=== PATIENT | male | born 1950 | race Caucasian/White ===

== ENCOUNTER 2017-01-08 23:48 | Inpatient (IN) ==
[2017-01-08] MEDS ORDERED: 0.9 % Sodium Chloride 1,000 ML IVC ONE ×2 (23:57→23:58)
[2017-01-09] MEDS ORDERED: Hydrocortisone Sodium Succ 100 MG/2 ML VIAL IVP ONE
[2017-01-09] MEDS ORDERED: Ipratropium/Albuterol Neb 3 ML IH ONE
[2017-01-09 00:12] LABS: Basophils # 0.1 K/mcL (0.0-0.2); Basophils % 0.8 %; Eosinophils # 0.4 K/mcL (0.0-0.6); Eosinophils % 5.8 %; Hematocrit 38.7 % (37.5-50.1); Hemoglobin 12.6 g/dL (12.9-16.9); Immature Granulocytes % 0.1 % (0-4); Lymphocytes # 2.9 K/mcL (0.6-4.6); Lymphocytes % 39.4 %; Mean Corpuscular HGB Conc 32.6 g/dL (31.6-35.5); Mean Corpuscular Hemoglobin 31.3 pg (28.0-33.3); Mean Corpuscular Volume 96.3 fL (83.0-100.0); Monocytes # 0.9 K/mcL (0.0-1.3); Monocytes % 11.4 %; Neutrophils # 3.2 K/mcL (1.6-8.9); Platelet Count 171 K/mcL (140-400); Red Blood Count 4.02 M/mcL (4.19-5.50); Red Cell Distribution Width 14.6 % (11.5-14.5); Segmented Neutrophils % 42.5 %
[2017-01-09 00:21] LABS: INR 1.1; Prothrombin Time 11.3 Seconds (9.4-12.1)
[2017-01-09 00:23] LABS: Activated Partial Thrombo Time 28.2 Seconds (26.0-36.0)
[2017-01-09 00:33] LABS: Albumin 3.2 g/dL (3.5-5.0); Albumin/Globulin Ratio 0.9 (1.1-2.2); Bilirubin,Direct 0.2 mg/dL (0.0-0.5); Bilirubin,Indirect 0.2 mg/dL (0.0-1.2); Bilirubin,Total 0.4 mg/dL (0.2-1.2); Calcium 9.2 mg/dL (8.6-10.8); Globulin 3.7 g/dL (2.4-3.5); Potassium 4.2 mEq/L (3.5-4.5); Total Protein 6.9 g/dL (6.0-8.3)
--- NOTE | 2017-01-09 00:36 | Emergency Department Note ---
Disposition Clinical Impression: Altered mental status Qualifiers: Altered mental status type: unspecified Qualified Code(s): R41.82 - Altered mental status, unspecified Hypotension Qualifiers: Hypotension type: unspecified hypotension type Qualified Code(s): I95.9 - Hypotension, unspecified Pneumonia Qualifiers: Pneumonia type: due to unspecified organism Laterality: unspecified laterality Lung location: unspecified part of lung Qualified Code(s): J18.9 - Pneumonia, unspecified organism Disposition: Admitted As Inpatient Condition: Fair General Adult HPI - General Chief complaint: ED Altered Mental Status Stated complaint: AMS Time Seen by Provider: 01/08/17 23:55 Source: patient, EMS Limitations: no limitations Nursing Notes Reviewed: Yes Vital Signs Reviewed: Yes - History of Present Illness HPI Narrative: 66-year-old male who according to family this was much more confused than normal. They report that he has a history of hypertension, hypothyroidism, diabetes. The family states that he was normal until about 10 PM this evening. They say that he fell asleep in his chair and was not easily aroused. They do state that he does drink alcohol but they do not know how much she had a drink today. They deny hearing that he has had a cough or any other symptoms. The patient says that nothing is wrong with him but he falls asleep in between questioning and mumbles. Pain Scale: 0 Consistency: constant Improves with: nothing Worsens with: nothing Treatments Prior to Arrival: none - Related Data Home Medications Medication Instructions Recorded Confirmed ALPRAZolam [Xanax 1 MG Tablet] 1 mg PO PRN PRN 01/09/17 01/09/17 Albuterol Sulfate [Proventil Hfa] 6.7 gm IH 2-4XD PRN 01/09/17 01/09/17 Atorvastatin Calcium [Lipitor] 20 mg PO DAILY 01/09/17 01/09/17 Levothyroxine [Synthroid] 0.025 mg PO DAILY 01/09/17 01/09/17 Lisinopril [Zestril] 15 mg PO DAILY 01/09/17 01/09/17 Metoprolol Tartrate 75 mg PO ISIDORO 01/09/17 01/09/17 Oxybutynin Chloride [Ditropan Xl] 15 mg PO DAILY 01/09/17 01/09/17 Quetiapine Fumarate [Seroquel] 400 mg PO HS 01/09/17 01/09/17 Ranitidine HCl [Zantac] 150 mg PO 1-2XD 01/09/17 01/09/17 Terbutaline Sulfate 5 mg PO DAILY 01/09/17 01/09/17 metFORMIN [Glucophage] 500 mg PO DAILY 01/09/17 01/09/17 Allergies Allergy/AdvReac Type Severity Reaction Status Date / Time Penicillins [PCN] Allergy Unknown Anaphylaxis Verified 01/08/17 23:54 All systems ED: reviewed and negative except as stated. Constitutional: Denies: fever Cardiovascular: Denies: chest pain Respiratory: Denies: cough Gastrointestinal: Denies: abdominal pain Integumentary: Denies: rash Neurological: Denies: headache Past Medical History - Past Medical History Medical history: Reports: arthritis, hyperlipidemia, hypertension, other Psychiatric history: Reports: PTSD - Social History Smoking Status: Current every day smoker Smokeless Tobacco Status: No Alcohol use: Reports: heavy Drug use: Reports: unknown Physical Exam - General Limitations: no limitations General appearance: alert, in no apparent distress - Head Head exam: atraumatic - Eye Eye exam: Present: normal appearance - ENT ENT exam: normal exam, normal oropharynx - Neck Neck exam: Present: normal inspection - Chest Chest inspection: Present: normal inspection - Respiratory Respiratory exam: Present: wheezes, other (Moderate expiratory wheezes bilaterally) - Cardiovascular Cardiovascular exam: Present: regular rate, normal rhythm - Abdominal Exam Abdominal exam: Present: soft, Non-Tender, other (Vertical incision scar is present which is well-healed) - Extremities Exam Extremities exam: Present: normal inspection - Neurological Exam Neurological exam: Present: other (Confused without motor sensory deficit. Tired.) - Skin Skin exam: Present: warm, dry Course Course Narrative: It is unclear at this point the etiology of his acute confusion. We will do a CT scan and a septic workup. On arrival he was hypotensive so we will go ahead and given 2 L normal saline. He is not tachycardic and is not febrile and there is no obvious source of infection on physical exam. However we will do blood cultures and treat this as sepsis until we find otherwise. I will also do a trial of hydrocortisone due to his hypotension without tachycardia. Levaquin given due to CXR possibly showing pneumonia. Will admit due to AMS. Accepted by Dr Argueta Vital Signs O2 Sat by Pulse Oximetry 94 01/08/17 23:52 Temperature 97.9 F 01/08/17 23:55 Pulse Rate 62 01/09/17 03:31 Respiratory Rate 18 01/09/17 03:59 Blood Pressure 115/71 01/09/17 03:59 O2 Sat by Pulse Oximetry 98 01/09/17 03:31 Oxygen Delivery Oxygen Delivery Nasal Cannula Medical Decision Making - Medical Records Medical records reviewed: Yes I reviewed the patient's medical records. - Lab Data Lab results reviewed: Yes I reviewed the patient's lab results. Result diagrams: 01/09/17 00:00 01/09/17 00:00 Lab Results 01/08/17 01/09/17 01/09/17 Range/Units 23:55 00:00 00:00 WBC 7.4 (4.3-11.1) K/mcL RBC 4.02 L (4.19-5.50) M/mcL Hgb 12.6 L (12.9-16.9) g/dL Hct 38.7 (37.5-50.1) % MCV 96.3 (83.0-100.0) fL MCH 31.3 (28.0-33.3) pg MCHC 32.6 (31.6-35.5) g/dL RDW 14.6 H (11.5-14.5) % Plt Count 171 (140-400) K/mcL MPV 10.0 (9.4-12.4) fL Immature Gran % 0.1 (0-4) % Seg Neutrophils % 42.5 % Lymphocytes % 39.4 % Monocytes % 11.4 % Eosinophils % 5.8 % Basophils % 0.8 % Neutrophils # 3.2 (1.6-8.9) K/mcL Lymphocytes # 2.9 (0.6-4.6) K/mcL Monocytes # 0.9 (0.0-1.3) K/mcL Eosinophils # 0.4 (0.0-0.6) K/mcL Basophils # 0.1 (0.0-0.2) K/mcL PT 11.3 (9.4-12.1) Seconds INR 1.1 APTT 28.2 (26.0-36.0) Seconds Sodium (136-145) mEq/L Potassium (3.5-4.5) mEq/L Chloride (98-109) mEq/L Carbon Dioxide (19-29) mEq/L BUN (8-26) mg/dL Creatinine (0.72-1.25) mg/dL Est GFR ( Amer) (> 60) Est GFR (Non-Af Amer) (> 60) BUN/Creatinine Ratio (6-26) Glucose (70-99) mg/dL POC Glucose 109 H (58-89) Calculated Osmolality (280-300) Calcium (8.6-10.8) mg/dL Total Bilirubin (0.2-1.2) mg/dL Direct Bilirubin (0.0-0.5) mg/dL Indirect Bilirubin (0.0-1.2) mg/dL AST (5-34) Units/L ALT (0-55) Units/L Alkaline Phosphatase (38-126) Units/L Ammonia (18-72) mcmol/L Troponin I (0-0.03) ng/mL Serum Total Protein (6.0-8.3) g/dL Albumin (3.5-5.0) g/dL Globulin (2.4-3.5) g/dL Albumin/Globulin Ratio (1.1-2.2) TSH (0.350-4.840) mcIU/mL Urine Color (Yellow) Urine Clarity (Clear) Urine pH (5.0-8.0) pH Units Ur Specific Fowler (1.010-1.025) Urine Protein (Neg-Trace) mg/dL Urine Glucose (UA) (Normal) mg/dL Urine Ketones (Negative) mg/dL Urine Blood (Negative) Urine Nitrite (Negative) Urine Bilirubin (Negative) Urine Urobilinogen (Normal) mg/dL Ur Leukocyte Esterase (Negative) Urine Microscopic RBC (0-3) per hpf Urine Microscopic WBC (0-3) per hpf Ur Squamous Epith Cells (None-Few) per lpf Urine Bacteria (None-Few) per hpf Hyaline Casts (None-Few) per lpf Ur Culture Indicated? (NO) Urine Opiates Screen (Ktfgtk=897) ng/mL Ur Barbiturates Screen (Jefkpb=572) ng/mL Ur Phencyclidine Scrn (Cutoff=25) ng/mL Ur Amphetamines Screen (Bedzln=0947) ng/mL U Benzodiazepines Scrn (Zeaiop=343) ng/mL Urine Cocaine Screen (Cutoff= 300) ng/mL U Marijuana (THC) Screen (Cutoff = 50) ng/mL Ethyl Alcohol (0-10) mg/dL 01/09/17 01/09/17 01/09/17 Range/Units 00:00 00:00 00:00 WBC (4.3-11.1) K/mcL RBC (4.19-5.50) M/mcL Hgb (12.9-16.9) g/dL Hct (37.5-50.1) % MCV (83.0-100.0) fL MCH (28.0-33.3) pg MCHC (31.6-35.5) g/dL RDW (11.5-14.5) % Plt Count (140-400) K/mcL MPV (9.4-12.4) fL Immature Gran % (0-4) % Seg Neutrophils % % Lymphocytes % % Monocytes % % Eosinophils % % Basophils % % Neutrophils # (1.6-8.9) K/mcL Lymphocytes # (0.6-4.6) K/mcL Monocytes # (0.0-1.3) K/mcL Eosinophils # (0.0-0.6) K/mcL Basophils # (0.0-0.2) K/mcL PT (9.4-12.1) Seconds INR APTT (26.0-36.0) Seconds Sodium 138 (136-145) mEq/L Potassium 4.2 (3.5-4.5) mEq/L Chloride 104 (98-109) mEq/L Carbon Dioxide 24 (19-29) mEq/L BUN 15 (8-26) mg/dL Creatinine 1.48 H (0.72-1.25) mg/dL Est GFR ( Amer) 58 L (> 60) Est GFR (Non-Af Amer) 48 L (> 60) BUN/Creatinine Ratio 10 (6-26) Glucose 111 H (70-99) mg/dL POC Glucose (58-89) Calculated Osmolality 288 (280-300) Calcium 9.2 (8.6-10.8) mg/dL Total Bilirubin 0.4 (0.2-1.2) mg/dL Direct Bilirubin 0.2 (0.0-0.5) mg/dL Indirect Bilirubin 0.2 (0.0-1.2) mg/dL AST 19 (5-34) Units/L ALT 25 (0-55) Units/L Alkaline Phosphatase 139 H (38-126) Units/L Ammonia 22 (18-72) mcmol/L Troponin I 0.02 (0-0.03) ng/mL Serum Total Protein 6.9 (6.0-8.3) g/dL Albumin 3.2 L (3.5-5.0) g/dL Globulin 3.7 H (2.4-3.5) g/dL Albumin/Globulin Ratio 0.9 L (1.1-2.2) TSH 8.978 H (0.350-4.840) mcIU/mL Urine Color (Yellow) Urine Clarity (Clear) Urine pH (5.0-8.0) pH Units Ur Specific Fowler (1.010-1.025) Urine Protein (Neg-Trace) mg/dL Urine Glucose (UA) (Normal) mg/dL Urine Ketones (Negative) mg/dL Urine Blood (Negative) Urine Nitrite (Negative) Urine Bilirubin (Negative) Urine Urobilinogen (Normal) mg/dL Ur Leukocyte Esterase (Negative) Urine Microscopic RBC (0-3) per hpf Urine Microscopic WBC (0-3) per hpf Ur Squamous Epith Cells (None-Few) per lpf Urine Bacteria (None-Few) per hpf Hyaline Casts (None-Few) per lpf Ur Culture Indicated? (NO) Urine Opiates Screen (Yovrnw=820) ng/mL Ur Barbiturates Screen (Kmkoqr=507) ng/mL Ur Phencyclidine Scrn (Cutoff=25) ng/mL Ur Amphetamines Screen (Fhkxia=1417) ng/mL U Benzodiazepines Scrn (Uqmetx=425) ng/mL Urine Cocaine Screen (Cutoff= 300) ng/mL U Marijuana (THC) Screen (Cutoff = 50) ng/mL Ethyl Alcohol 22 H (0-10) mg/dL 01/09/17 01/09/17 Range/Units 00:53 00:53 WBC (4.3-11.1) K/mcL RBC (4.19-5.50) M/mcL Hgb (12.9-16.9) g/dL Hct (37.5-50.1) % MCV (83.0-100.0) fL MCH (28.0-33.3) pg MCHC (31.6-35.5) g/dL RDW (11.5-14.5) % Plt Count (140-400) K/mcL MPV (9.4-12.4) fL Immature Gran % (0-4) % Seg Neutrophils % % Lymphocytes % % Monocytes % % Eosinophils % % Basophils % % Neutrophils # (1.6-8.9) K/mcL Lymphocytes # (0.6-4.6) K/mcL Monocytes # (0.0-1.3) K/mcL Eosinophils # (0.0-0.6) K/mcL Basophils # (0.0-0.2) K/mcL PT (9.4-12.1) Seconds INR APTT (26.0-36.0) Seconds Sodium (136-145) mEq/L Potassium (3.5-4.5) mEq/L Chloride (98-109) mEq/L Carbon Dioxide (19-29) mEq/L BUN (8-26) mg/dL Creatinine (0.72-1.25) mg/dL Est GFR ( Amer) (> 60) Est GFR (Non-Af Amer) (> 60) BUN/Creatinine Ratio (6-26) Glucose (70-99) mg/dL POC Glucose (58-89) Calculated Osmolality (280-300) Calcium (8.6-10.8) mg/dL Total Bilirubin (0.2-1.2) mg/dL Direct Bilirubin (0.0-0.5) mg/dL Indirect Bilirubin (0.0-1.2) mg/dL AST (5-34) Units/L ALT (0-55) Units/L Alkaline Phosphatase (38-126) Units/L Ammonia (18-72) mcmol/L Troponin I (0-0.03) ng/mL Serum Total Protein (6.0-8.3) g/dL Albumin (3.5-5.0) g/dL Globulin (2.4-3.5) g/dL Albumin/Globulin Ratio (1.1-2.2) TSH (0.350-4.840) mcIU/mL Urine Color Yellow (Yellow) Urine Clarity Cloudy A (Clear) Urine pH 6.0 (5.0-8.0) pH Units Ur Specific Fowler 1.010 (1.010-1.025) Urine Protein Negative (Neg-Trace) mg/dL Urine Glucose (UA) Normal (Normal) mg/dL Urine Ketones Negative (Negative) mg/dL Urine Blood Negative (Negative) Urine Nitrite Negative (Negative) Urine Bilirubin Negative (Negative) Urine Urobilinogen Normal (Normal) mg/dL Ur Leukocyte Esterase Negative (Negative) Urine Microscopic RBC 0-3 (0-3) per hpf Urine Microscopic WBC 0-3 (0-3) per hpf Ur Squamous Epith Cells Many H (None-Few) per lpf Urine Bacteria None Seen (None-Few) per hpf Hyaline Casts None Seen (None-Few) per lpf Ur Culture Indicated? NO (NO) Urine Opiates Screen Negative (Mkmrlh=531) ng/mL Ur Barbiturates Screen Negative (Jfzydv=244) ng/mL Ur Phencyclidine Scrn Negative (Cutoff=25) ng/mL Ur Amphetamines Screen Negative (Hojshf=7726) ng/mL U Benzodiazepines Scrn Positive H (Lqjfrm=758) ng/mL Urine Cocaine Screen Negative (Cutoff= 300) ng/mL U Marijuana (THC) Screen Negative (Cutoff = 50) ng/mL Ethyl Alcohol (0-10) mg/dL - Radiology Data Radiology results reviewed: Yes I reviewed the patient's radiology results. Attestation Statement - Attestation Attestation: I, Ryland Finley MD, personally evaluated this patient and discussed their management with the resident physician. I reviewed the resident's note and agree with the documented findings, medical decision making, and plan of care. 66-year-old male presents to the emergency department with a complaint of increased confusion which started earlier this evening. Family reports that he was just slumped over in chair. He does respond but is more drowsy than normal. Speech is garbled and difficult to understand. He has not been ill recently. He has a history of a similar episode in the past and was found out in the manzo. He had rhabdomyolysis at that time elevated liver enzymes and kidney function. On examination patient is a well-developed well-nourished elderly male in no acute distress. He is somnolent but responds to verbal stimuli. There is no cyanosis or diaphoresis. Neck is supple with no meningismus. Mucous membranes are moist. Chest is nontender to palpation. Breath sounds are decreased but equal bilaterally. Heart regular rate and rhythm. Abdomen is soft and nontender with normal bowel sounds. Labs reviewed. No acute changes on EKG. Chest x-ray shows left basilar airspace disease could represent recurrent atelectasis/pneumonia or scarring. Head CT negative. The hospitalist, Dr. Argueta, was consulted and accepted admission of the patient.
[2017-01-09 01:03] LABS: Bilirubin,Urine Negative (Negative); Blood,Urine Negative (Negative); Clarity,Urine Cloudy (Clear); Color,Urine Yellow (Yellow); Glucose,Urine (UA) Normal (Normal); Ketones,Urine Negative (Negative); Leukocyte Esterase,Urine Negative (Negative); Nitrite,Urine Negative (Negative); Protein,Urine Negative (Neg-Trace); Urobilinogen,Urine Normal (Normal)
[2017-01-09 01:06] LABS: Bacteria,Urine None Seen per hpf (None-Few); Hyaline Casts,Urine None Seen per lpf (None-Few); RBC,Urine 0-3 per hpf (0-3); Squamous Epithelial Cell,Urine Many per lpf (None-Few); WBC,Urine 0-3 per hpf (0-3)
[2017-01-09 01:14] LABS: Thyroid Stimulating Hormone 8.978 mcIU/mL (0.350-4.840)
[2017-01-09 02:03] LABS: Amphetamine Screen,Urine Negative ng/mL (Cutoff=1000); Barbiturate Screen,Urine Negative ng/mL (Cutoff=200); Benzodiazepines Screen,Urine Positive ng/mL (Cutoff=200); Cannabinoid Screen,Urine Negative ng/mL (Cutoff = 50); Cocaine Screen,Urine Negative ng/mL (Cutoff= 300); Opiate Screen,Urine Negative ng/mL (Cutoff=300); Phencyclidine Screen,Urine Negative ng/mL (Cutoff=25)
[2017-01-09] MEDS ORDERED: Levofloxacin 750 MG/150 ML 750 MG/150 ML BAG IVPB ONE (02:24)
[2017-01-09] MEDS ORDERED: Acetaminophen 325 MG TABLET PO PRN (04:57)
[2017-01-09] MEDS ORDERED: Naloxone 0.4 MG/ML INJ IVP PRN (04:57)
[2017-01-09] MEDS ORDERED: Ondansetron 4 MG/2 ML VIAL IVP PRN (04:57)
[2017-01-09] MEDS ORDERED: *HR* Morphine 2 MG/ML SYRINGE IVP PRN (04:57)
[2017-01-09] MEDS ORDERED: ALPRAZolam 1 MG TABLET PO PRN (05:00)
[2017-01-09] MEDS ORDERED: *HR* Dextrose 50 % in Water (Syg) 50 ML SYRINGE IVP PRN (05:03)
[2017-01-09] MEDS ORDERED: D5% in Water 1,000 ML IVC PRN (05:03)
[2017-01-09] MEDS ORDERED: Dextrose Gel 15 GM PO PRN ×2 (05:03)
--- NOTE | 2017-01-09 05:05 | Internal Med History&Physical ---
Date of Encounter: 01/09/17 Time of Encounter: 04:45 Assessment and Plan (1) Altered mental status Current visit: No Status: Acute Acute Encephalopathy, metabolic - possibly due to Benzodiazepine use, possibly due to alcohol abuse - with mild ASHLEY Probable moderate Dementia Continue IV fluids, NPO, supportive care, O2 via nasal cannula UA - negative CT head - no acute intracranial abnormality Chest x-ray - left basilar airspace disease UDS - positive for benzodiazepines Alcohol level - 22 Cardiac telemetry, continuous pulse ox, continue to monitor closely Qualifiers: Altered mental status type: unspecified Qualified Code(s): R41.82 - Altered mental status, unspecified (2) Pneumonia Current visit: Yes Status: Acute Community-acquired pneumonia, left lower lobe - present on admission, likely secondary to strep pneumoniae Continue empiric IV Levaquin, DuoNeb breathing treatment, O2 via nasal cannula Cultures - pending Chest x-ray - left basilar airspace disease WBC - 7.4 Cardiac telemetry, continuous pulse ox, repeat labs in a.m., continue to monitor closely Qualifiers: Pneumonia type: due to unspecified organism Laterality: unspecified laterality Lung location: unspecified part of lung Qualified Code(s): J18.9 - Pneumonia, unspecified organism (3) Essential hypertension Current visit: Yes Status: Chronic Essential Hypertension, controlled, monitor Hold Metoprolol and Lisinopril due to hypotension (4) Hyperlipidemia Current visit: No Status: Chronic Continue Zocor Qualifiers: Hyperlipidemia type: unspecified Qualified Code(s): E78.5 - Hyperlipidemia , unspecified (5) COPD (chronic obstructive pulmonary disease) Current visit: Yes Status: Chronic Probable COPD, not in exacerbation Qualifiers: Emphysema type: unspecified Qualified Code(s): J43.9 - Emphysema, unspecified (6) Diabetes mellitus Current visit: Yes Status: Chronic Diabetes mellitus type 2, [id number], hyperglycemia Continue glucose checks, sliding scale Qualifiers: Diabetes mellitus type: type 2 Diabetes mellitus complication status: without complication Diabetes mellitus fci insulin use: without fci use Qualified Code(s): E11.9 - Type 2 diabetes mellitus without complications (7) Alcohol abuse Current visit: No Status: Chronic Counseled about cessation, watch for withdrawal CIWA protocol, IV thiamine, multivitamin tablet (8) Tobacco abuse Current visit: Yes Status: Chronic Counseled about cessation, nicotine patch (9) DVT prophylaxis Current visit: Yes Status: Acute Continue heparin subcutaneous Internal Medicine - H&P: HPI Chief complaint: Altered mental status Admitted From: Emergency Dept Plans for Post Hospital Care: Home History of present illness: Mr. Macdonald is a 66 year old male with past medical history of diabetes, hypertension, hyperlipidemia, arthritis, history of alcohol abuse and PTSD. Patient presents to the ED with complaints of altered mental status. Examined in the room. Patient is awake and alert. He is able to follow verbal commands. He is able to verbalize well. He does not provide good history. Son is at bedside and provides most of the history. Patient's son states that patient became more confused and had altered mental status earlier in the day. Patient usually lives by himself, but his nephew has been living with him for the past 1 week. Patient is apparently independent for activities of daily living. Patient did not complain of chest pain or shortness of breath or vomiting or fever or diarrhea or abdominal pain. No dizziness or any other problems. Son states that patient does have dementia and has been more confused recently. Patient does have history of alcohol abuse. No other acute complaints at this time. Initial workup in the ED is significant for mild acute kidney injury, left basilar airspace disease and urine drug screen positive for benzodiazepines. Patient is being admitted for altered mental status probably due to benzodiazepine use and pneumonia. CODE STATUS full code. Son is the power of trust and estates attorney. Past Med Surg Social Fam HX - Past Medical History Medical history: arthritis, COPD, hyperlipidemia, hypertension, TIA, other Psychiatric history: PTSD - Past Surgical History Surgical History: appendectomy, colectomy - Social History Smoking Status: Current every day smoker Packs per day: 1 Smokeless Tobacco Status: No Alcohol use: heavy Drug use: none - Family History Father Living Status: Hx Family Cardiac Disorders: Yes Hx Family Respiratory Disorders: Yes Hx Family Cancer: No Hx Family GI Disorders: No Hx Family Endocrine Disorder: No Hx Family Neuromuscular Disorders: No Hx Family Neurologic Disorders: No Hx Family HEENT Disorders: No Hx Family Autoimmune Disorders: No Internal Medicine - H&P: Meds ALPRAZolam [Xanax 1 MG Tablet] 1 mg PO PRN PRN 01/09/17 [History] Albuterol Sulfate [Proventil Hfa] 6.7 gm IH 2-4XD PRN 01/09/17 [History] Atorvastatin Calcium [Lipitor] 20 mg PO DAILY 01/09/17 [History] Levothyroxine [Synthroid] 0.025 mg PO DAILY 01/09/17 [History] Lisinopril [Zestril] 15 mg PO DAILY 01/09/17 [History] Metoprolol Tartrate 75 mg PO ISIDORO 01/09/17 [History] Oxybutynin Chloride [Ditropan Xl] 15 mg PO DAILY 01/09/17 [History] Quetiapine Fumarate [Seroquel] 400 mg PO HS 01/09/17 [History] Ranitidine HCl [Zantac] 150 mg PO 1-2XD 01/09/17 [History] Terbutaline Sulfate 5 mg PO DAILY 01/09/17 [History] metFORMIN [Glucophage] 500 mg PO DAILY 01/09/17 [History] 3 Allergy/AdvReac Type Severity Reaction Status Date / Time Penicillins [PCN] Allergy Unknown Anaphylaxis Verified 01/08/17 23:54 All Systems PM: A 10-system review of systems was performed and is negative for pertinent findings except as documented above in the HPI. - Constitutional Constitutional: no fatigue, no fever(s) - EENT Eyes: no blurry vision - Cardiovascular Cardiovascular ROS IM: no chest pain, no diaphoresis, no dyspnea, no dyspnea on exertion, no edema, no lightheadedness, no orthopnea, no syncope - Respiratory Respiratory: no cough, no dyspnea, no hemoptysis, no dyspnea on exertion, no wheezing, no chest congestion - Gastrointestinal Gastrointestinal: no abdominal pain, no cramping, no diarrhea, no hematemesis, no hematochezia, no nausea, no vomiting - Genitourinary Genitourinary ROS male: no dysuria - Neurological Neurological ROS: confusion, memory loss, no abnormal gait, no dizziness, no focal weakness, no loss of vision, no numbness, no tingling - Constitutional Vitals: Temp Pulse Resp BP Pulse Ox 97.5 F L 65 16 100/66 97 01/09/17 04:29 01/09/17 04:29 01/09/17 04:29 01/09/17 04:29 01/09/17 04:29 General appearance: Present: cooperative, A&O X 2, no acute distress, obese, answers questions appropriately - Head Head exam: Present: atraumatic - Eye Eye exam: Present: EOMI - ENT ENT exam: Present: mucous membranes dry - Respiratory Respiratory exam: Present: CTAB. Absent: rales, rhonchi, wheezes, tachypnea - Cardiovascular Cardiovascular exam: Present: RRR, +S1, +S2 - GI/Abdominal GI/Abdominal exam: Present: soft (Obese). Absent: distended, firm, guarding, tenderness - Extremities Exam Extremities exam: Present: radial pulses palpable and symmetrical. Absent: calf tenderness, cyanotic, pedal edema - Neurological Exam Neurological exam: Present: alert, no focal deficits. Absent: pronater drift, facial droop, speech deficit Additional comments: Able to verbalize call follows commands, oriented to place and person but not to time Internal Med - H&P Results - Labs CBC & Chem 7: 01/09/17 00:00 01/09/17 00:00 - Impressions ITS Impressions Chest X-Ray 01/09/17 23:57 IMPRESSION: Left basilar airspace disease could represent recurrent atelectasis/pneumonia or scarring. D/ / Wilebrt Dill MD / Wilbert Dill MD Interpreting Provider: Wilbert Dill MD Head CT 01/09/17 23:59 IMPRESSION: No acute intracranial abnormality. D/ / Wilbert Dill MD / Wilbert Dill MD Interpreting Provider: Wilbert Dill MD
[2017-01-09] MEDS: 0.9 % Sodium Chloride 1,000 ML IVC SCH ×2 (05:28→23:44)
[2017-01-09] MEDS: Famotidine 20 MG/2 ML VIAL IVP SCH ×2 (05:31→17:27)
[2017-01-09 07:29] LABS: Basophils % 0.4 %; Eosinophils % 0.3 %; Hematocrit 38.7 % (37.5-50.1); Hemoglobin 12.6 g/dL (12.9-16.9); Immature Granulocytes % 0.3 % (0-4); Lymphocytes # 0.9 K/mcL (0.6-4.6); Lymphocytes % 13.5 %; Mean Corpuscular HGB Conc 32.6 g/dL (31.6-35.5); Mean Corpuscular Hemoglobin 31.7 pg (28.0-33.3); Mean Corpuscular Volume 97.5 fL (83.0-100.0); Mean Platelet Volume 10.5 fL (9.4-12.4); Monocytes # 0.2 K/mcL (0.0-1.3); Neutrophils # 5.5 K/mcL (1.6-8.9); Platelet Count 165 K/mcL (140-400); Red Blood Count 3.97 M/mcL (4.19-5.50); Red Cell Distribution Width 14.7 % (11.5-14.5); Segmented Neutrophils % 82.5 %
[2017-01-09 07:41] LABS: BUN/Creatinine Ratio 15 (6-26); Blood Urea Nitrogen 15 mg/dL (8-26); Calcium 8.7 mg/dL (8.6-10.8); Carbon Dioxide 24 mEq/L (19-29); Chloride 106 mEq/L (98-109); Chol/HDL Ratio 3.4 (0-4.9); Cholesterol 147 mg/dL (< 200); Glucose 134 mg/dL (70-99); HDL Cholesterol 43 mg/dL (40-59); LDL Cholesterol,Calculated 94 mg/dL (0-99); Magnesium 2.1 mg/dL (1.6-2.6); Osmolality,Calculated 287 (280-300); Sodium 137 mEq/L (136-145); Triglycerides 51 mg/dL (< 150); eGFR For African Americans > 60 (> 60); eGFR For Non-African Americans > 60 (> 60)
[2017-01-09] MEDS: Ipratropium/Albuterol Neb 3 ML IH SCH ×4 (08:01→20:26)
[2017-01-09 08:24] LABS: ABG Base Excess -0.4 mEq/L (-2.0 to 3.0); ABG HCO3 26 mEq/L (21-27); ABG Oxygen Saturation 96 % (95-98); ABG PCO2 48 mmHg (35-45); ABG PH 7.34 pH Units (7.32-7.45); ABG PO2 86 mmHg (85-104); ABG TCO2 27.4 mEq/L (20-26)
[2017-01-09 08:25] LABS: Blood Gas FiO2 38 %
[2017-01-09] MEDS: Thiamine (B-1) 100 MG in D5% in Water 50 ML IVPB SCH (08:52)
[2017-01-09] MEDS: Multivit/Ca/Min/Fe/FA 1 TAB TABLET PO SCH (08:52)
[2017-01-09] MEDS: Aspirin 81 MG TAB.CHEW PO SCH (08:53)
[2017-01-09] MEDS: Levothyroxine 25 MCG TABLET PO SCH (08:53)
[2017-01-09] MEDS: Nicotine 21 MG PATCH.TD24 TD SCH (08:54)
[2017-01-09] MEDS: Insulin LISPRO 300 UNITS/3 ML VIAL SQ SCH ×3 (08:54→17:24)
--- NOTE | 2017-01-09 09:39 | Internal Med Progress Note ---
Date of Encounter: 01/09/17 Time of Encounter: 08:30 - Assessment and plan (1) Altered mental status Current Visit: Yes Status: Acute Assessment and plan: Patient arrives to the emergency department with acute encephalopathy. Cause is multifactorial, most likely metabolic due to a combination of alcohol intake, benzodiazepines, dehydration, pneumonia. Patient appears to have some baseline dementia. Patient has received IV hydration, IV antibiotics, and oxygen. He is now alert and oriented, states that he thought he was in a hospital in [place]. His speech is clear. He appears to be improving. We will continue to monitor. Continue IV antibiotics and fluids Continue telemetry Continue oxygen as needed to maintain sats greater than 92%. Continue to monitor labs, especially renal function. Qualifiers: Altered mental status type: unspecified Qualified Code(s): R41.82 - Altered mental status, unspecified (2) Alcohol abuse Current Visit: Yes Status: Chronic Assessment and plan: Patient states he normally drinks 1 beer per day. Yesterday he drank 5 beers while at a [facility]. Alcohol level on arrival was 22. Patient states that he does not have a problem and does not see a need for cessation. (3) Pneumonia Current Visit: Yes Status: Acute Assessment and plan: Left lower lobe pneumonia per chest x-ray, community-acquired. Patient is a smoker. Lung sounds diminished with inspiratory and expiratory wheezing throughout all lung montes. Patient denies cough at this time. No leukocytosis or fever. Strep pneumo and Legionella pending. Oxygen titrate to maintain sats greater than 92% Continue IV antibiotics and IV fluids Blood and sputum cultures are pending DuoNeb to albuterol treatments as needed. Continue to monitor vital signs and labs. Qualifiers: Pneumonia type: due to unspecified organism Laterality: unspecified laterality Lung location: unspecified part of lung Qualified Code(s): J18.9 - Pneumonia, unspecified organism (4) Tobacco abuse Current Visit: Yes Status: Chronic Assessment and plan: Patient states that he does not want to quit smoking. (5) Essential hypertension Current Visit: Yes Status: Chronic Assessment and plan: Chronic. Continue lisinopril and metoprolol. (6) Diabetes mellitus Current Visit: Yes Status: Chronic Assessment and plan: A1c ordered for morning. Continue sliding scale insulin, Accu-Cheks before meals at bedtime, and diabetic diet. Qualifiers: Diabetes mellitus type: type 2 Diabetes mellitus complication status: without complication Diabetes mellitus mcc insulin use: without mcc use Qualified Code(s): E11.9 - Type 2 diabetes mellitus without complications (7) COPD (chronic obstructive pulmonary disease) Current Visit: Yes Status: Chronic Assessment and plan: Per history. Plan as above for pneumonia. Qualifiers: Emphysema type: unspecified Qualified Code(s): J43.9 - Emphysema, unspecified (8) DVT prophylaxis Current Visit: Yes Status: Acute Assessment and plan: Heparin subcutaneous. - Time Spent With Patient less than 15 minutes - Subjective Interval history: Patient was seen and evaluated 8:30 AM. He is alert and awake, oriented 3. He did think he was at [facility] and [place], however. Patient has no recollection of any events leading up to his admission. He said that he passed out at home and woke up in the emergency room department, he has no memory of being in the emergency department. He states that he was in a [employer] picnic yesterday and had 5 beers prior to this episode, states he normally drinks 1 beer daily. He also recalls prior history of "something wrong with my kidneys" last year about this time and was at [facility] for a few days. He is unsure why he was there or the outcome other than, "they gave me a bunch of pills that dont work." - Constitutional Vitals: Temp Pulse Resp BP Pulse Ox 97.6 F 67 15 115/75 99 01/09/17 08:16 01/09/17 08:16 01/09/17 08:16 01/09/17 08:16 01/09/17 08:16 General appearance: Present: cooperative, A&O X 2, no acute distress, obese, answers questions appropriately - Head Head exam: Present: atraumatic, normal inspection, normocephalic - Eye Eye exam: Present: normal appearance, conjuntiva pink, sclera anicteric - Neck Neck exam general surgery: Present: normal inspection, supple, trachea midline. Absent: lymphadenopathy - Respiratory Respiratory exam: Present: decreased breath sounds, CTAB, wheezes. Absent: accessory muscle use, chest wall tenderness, rales, rhonchi - Cardiovascular Cardiovascular exam: Present: RRR, +S1, +S2. Absent: diastolic murmur, gallop, rubs, systolic murmur - GI/Abdominal GI/Abdominal exam: Present: normal bowel sounds, soft. Absent: distended, hernia, hepatomegaly, tenderness - Extremities Exam Extremities exam: Present: normal inspection, warm, radial pulses palpable and symmetrical. Absent: calf tenderness, cyanotic, pedal edema, tenderness - Neurological Exam Neurological exam: Present: alert, oriented X3, no focal deficits. Absent: facial droop, speech deficit - Skin Skin exam: Present: dry, intact, normal color, warm - Expanded Skin Exam Type of lesion: Present: abrasion (Bridge of nose) Internal Medicine: Result - Labs CBC & Chem 7: 01/09/17 06:32 01/09/17 06:32 Labs: Short CBC 01/09/17 Range/Units 06:32 WBC 6.7 (4.3-11.1) K/mcL Hgb 12.6 L (12.9-16.9) g/dL Hct 38.7 (37.5-50.1) % Plt Count 165 (140-400) K/mcL Neutrophils # 5.5 (1.6-8.9) K/mcL BMP 01/09/17 06:32 Sodium 137 Potassium 5.0 H Chloride 106 Carbon Dioxide 24 BUN 15 Creatinine 1.03 Glucose 134 H Calcium 8.7 - ABG Interpretation ABG results: ABG ABG pH 7.34 pH Units (7.32-7.45) 01/09/17 07:59 ABG pCO2 48 mmHg (35-45) H 01/09/17 07:59 ABG pO2 86 mmHg (85-104) 01/09/17 07:59 ABG O2 Saturation 96 % (95-98) 01/09/17 07:59 PT/INR, D-dimer PT 11.3 Seconds (9.4-12.1) 01/09/17 00:00 - Impressions Impressions Chest X-Ray 01/09/17 23:57 IMPRESSION: Left basilar airspace disease could represent recurrent atelectasis/pneumonia or scarring. D/ / Wilbert Dill MD / Wilbert Dill MD Interpreting Provider: Wilbert Dill MD Head CT 01/09/17 23:59 IMPRESSION: No acute intracranial abnormality. D/ / Wilbert Dill MD / Wilbert Dill MD Interpreting Provider: Wilbert Dill MD Consult Discharge Plan - Plan Referrals: [facility] [Primary Care Provider] -
[2017-01-09 10:14] LABS: Hemoglobin A1C 5.5 %
[2017-01-09] MEDS: *HR* Heparin 5,000 UNIT/ML VIAL SQ SCH ×2 (14:00→23:43)
[2017-01-09] MEDS ORDERED: Levofloxacin 750 MG/150 ML 750 MG/150 ML BAG IVPB SCH (18:00)
[2017-01-09] MEDS ORDERED: Insulin LISPRO 300 UNITS/3 ML VIAL SQ SCH (21:00)
[2017-01-10] MEDS: Ipratropium/Albuterol Neb 3 ML IH SCH ×4 (00:01→11:25)
[2017-01-10 03:22] LABS: Basophils # 0.1 K/mcL (0.0-0.2); Basophils % 0.6 %; Eosinophils # 0.3 K/mcL (0.0-0.6); Eosinophils % 3.3 %; Hematocrit 37.5 % (37.5-50.1); Immature Granulocytes % 0.1 % (0-4); Immature Platelets 4.1 % (1.1-6.1); Lymphocytes # 2.2 K/mcL (0.6-4.6); Mean Corpuscular Hemoglobin 31.4 pg (28.0-33.3); Mean Corpuscular Volume 98.2 fL (83.0-100.0); Mean Platelet Volume 10.5 fL (9.4-12.4); Monocytes # 0.9 K/mcL (0.0-1.3); Monocytes % 10.6 %; Platelet Count 155 K/mcL (140-400); Red Blood Count 3.82 M/mcL (4.19-5.50); Red Cell Distribution Width 14.9 % (11.5-14.5); Segmented Neutrophils % 59.4 %
[2017-01-10 03:35] LABS: BUN/Creatinine Ratio 15 (6-26); Blood Urea Nitrogen 15 mg/dL (8-26); Calcium 8.9 mg/dL (8.6-10.8); Carbon Dioxide 22 mEq/L (19-29); Chloride 109 mEq/L (98-109); Glucose 103 mg/dL (70-99); Osmolality,Calculated 293 (280-300); Potassium 4.1 mEq/L (3.5-4.5); Sodium 141 mEq/L (136-145); eGFR For African Americans > 60 (> 60); eGFR For Non-African Americans > 60 (> 60)
[2017-01-10] MEDS: *HR* Heparin 5,000 UNIT/ML VIAL SQ SCH (06:00)
[2017-01-10] MEDS: Famotidine 20 MG/2 ML VIAL IVP SCH (06:30)
[2017-01-10 07:57] VITALS: BP 153/90
[2017-01-10] MEDS: Insulin LISPRO 300 UNITS/3 ML VIAL SQ SCH ×2 (09:18→12:12)
[2017-01-10] MEDS: Nicotine 21 MG PATCH.TD24 TD SCH (10:38)
[2017-01-10] MEDS: Multivit/Ca/Min/Fe/FA 1 TAB TABLET PO SCH (10:38)
[2017-01-10] MEDS: Aspirin 81 MG TAB.CHEW PO SCH (10:38)
[2017-01-10] MEDS: Levothyroxine 25 MCG TABLET PO SCH (10:38)
[2017-01-10] MEDS: Thiamine (B-1) 100 MG in D5% in Water 50 ML IVPB SCH (10:41)
--- NOTE | 2017-01-10 11:37 | Discharge Summary ---
Date of Encounter: 01/10/17 Time of Encounter: 08:30 - Discharge Diagnosis (1) Altered mental status Priority: Primary Status: Acute Comments: Pt has returned to baseline. He is alert and oriented, speech is clear. Head CT was negative, CXR showed pneumonia. Pt is being treated for pna and will continue after EMS. AMS was multifactorial, most likely due to a combination of pneumonia, benzodiazepine and ETOH use concurrently, and mild dehydration/ASHLEY. Labs have returned to normal. Qualifiers: Altered mental status type: unspecified Qualified Code(s): R41.82 - Altered mental status, unspecified (2) Alcohol abuse Priority: Secondary Status: Chronic Comments: Chronic. Pt states that he drinks about 1 beer daily. He is not interested in cessation. (3) Pneumonia Priority: Secondary Status: Acute Comments: Will treat on d/c. Qualifiers: Pneumonia type: due to unspecified organism Laterality: unspecified laterality Lung location: unspecified part of lung Qualified Code(s): J18.9 - Pneumonia, unspecified organism (4) Tobacco abuse Priority: Secondary Status: Chronic Comments: Chronic. Pt states that he is not ready to stop smoking. (5) Essential hypertension Priority: Secondary Status: Chronic Comments: Chronic. Continue home medication. (6) Diabetes mellitus Priority: Secondary Status: Chronic Comments: A1c 5.5. Continue home medications and accuchecks as scheduled at home. Qualifiers: Diabetes mellitus type: type 2 Diabetes mellitus complication status: without complication Diabetes mellitus long term care social worker insulin use: without long term care social worker use Qualified Code(s): E11.9 - Type 2 diabetes mellitus without complications (7) COPD (chronic obstructive pulmonary disease) Priority: Secondary Status: Chronic Comments: Plan as above. Qualifiers: Emphysema type: unspecified Qualified Code(s): J43.9 - Emphysema, unspecified (8) DVT prophylaxis Priority: Secondary Status: Acute Comments: Heparin SQ - Discharge Medications Prescriptions: GuaiFENesin ER [Mucinex] 600 mg PO BID #60 tbbp.12hr Levofloxacin [Levaquin] 750 mg PO DAILY #7 tablet Home Medications: ALPRAZolam [Xanax 0.5 MG Tablet] 0.5 mg PO TID PRN 01/09/17 [History] Albuterol Sulfate [Proventil Hfa] 2 puff IH QID PRN 01/09/17 [History] Aspirin [Lo-Dose Aspirin EC] 81 mg PO DAILY 01/09/17 [History] Atorvastatin Calcium [Lipitor] 10 mg PO HS 01/09/17 [History] Levothyroxine [Synthroid] 25 mcg PO DAILY 01/09/17 [History] Lisinopril [Zestril] 5 mg PO DAILY 01/09/17 [History] Metformin HCl [Metformin HCl ER] 500 mg PO DAILY 01/09/17 [History] Metoprolol Succinate 100 mg PO DAILY 01/09/17 [History] Multivitamin [One Daily Multivitamin] 1 tab PO DAILY 01/09/17 [History] Oxybutynin Chloride [Ditropan Xl] 15 mg PO DAILY 01/09/17 [History] Quetiapine Fumarate [Seroquel] 400 mg PO HS 01/09/17 [History] Ranitidine HCl [Zantac] 150 mg PO BID PRN 01/09/17 [History] Terbinafine HCl [Lamisil] 250 mg PO DAILY 01/09/17 [History] Thiamine (B-1) [Vitamin B-1] 100 mg PO DAILY 01/09/17 [History] GuaiFENesin ER [Mucinex] 600 mg PO BID #60 tbbp.12hr 01/10/17 [Rx] Levofloxacin [Levaquin] 750 mg PO DAILY #7 tablet 01/10/17 [Rx] Allergies/Adverse Reactions: 3 Allergy/AdvReac Type Severity Reaction Status Date / Time Penicillins [PCN] Allergy Unknown Anaphylaxis Verified 01/09/17 13:51 Procedures/tests Complete & Pending: Procedures Performed prior 72 hours Category Date Time Status EV echocardiogram Routine Y 01/09/17 07:13 Completed Date of admission: 01/09/17 03:45 Primary care physician: [facility] Consults: 01/09/17 04:23 Consult to Manager Document Control [CONS] Routine Reason for SW Consult: Power of nursing staff development coordinator information Discharging clinician: Gretchen Buckley Anticipated date of discharge: 01/10/17 - Patient Status Disposition: Home, Self-Care Condition: Good Functional capacity at discharge: independent ambulation Overall status at discharge: patient is progressing back to baseline - Discharge Instructions Follow Up With: [facility] [Primary Care Provider] - Additional Instructions: Follow up with PCP in the next 7-10 days for a follow up visit and recheck. Take your antibiotics as directed and until they are gone. Take Mucinex as directed. Continue your other home medications and resume your activities as tolerated. Return to the ER as needed for any other problems or concerns or if your symptoms return or worsen. - Diet and Activity Activity: increase activity as tolerated, return to work once cleared by your PCP/specialist Diet: advance to your usual diet Hospital course: Mr. Macdonald is a 66 year old male Past medical history of diabetes, hypertension, hyperlipidemia, arthritis, history of tobacco abuse. He presented to the emergency department with complaints of altered mental status. Apparently on admission, he was alert and awake and able to follow verbal commands. His speech is being clear. He is progressively improve. He lives at home with his nephew, his son is helpful in his care. He states that he went to a picnic and had 5 beers and went home and was found to be confused later. Pt with acute encephalopathy which has improved. Altered mental status is multifactorial, patient takes benzodiazepines and son states that he takes more than he needs, he had ASHLEY, most likely due to dehydration, he had had 5 beers at a picnic, and he has pneumonia. washhouse worker is consulted for assistance with pt perhaps going home with home health for assistance with medications. Pt is a smoker and states that he does not want to stop smoking, we have discussed it both days that he has been here. Pt has diminished lung sounds with ronchi throughout. He states that he feels good and will be sent home with antibiotics and Mucinex and will be encouraged to increase fluids. He has no leukocytosis, renal function is WNL. Urine was negative for infection , stretococcus pneumoniae, or legionella. Blood cultures were negative. He is on room air and is not requiring supplemental 02. His vitals are stable and he is ready for discharge. Time spent discussing smoking cessation with patient: 3 to 10 minutes - Time Spent with Patient Total time spent providing and/or coordinating discharge services: Less than 30 minutes - Constitutional Vitals: Temp Pulse Resp BP Pulse Ox 98.1 F 84 16 153/90 97 01/10/17 07:37 01/10/17 07:37 01/10/17 07:55 01/10/17 07:37 01/10/17 07:55 General appearance: Present: cooperative, A&O X 2, no acute distress, obese, answers questions appropriately - Head Head exam: Present: atraumatic, normal inspection, normocephalic - Eye Eye exam: Present: normal appearance, conjuntiva pink, sclera anicteric - Neck Neck exam general surgery: Present: supple, trachea midline. Absent: lymphadenopathy - Respiratory Respiratory exam: Present: decreased breath sounds, CTAB, wheezes. Absent: accessory muscle use, rales, respiratory distress, rhonchi - Cardiovascular Cardiovascular exam: Present: RRR, +S1, +S2. Absent: diastolic murmur, gallop, rubs, systolic murmur - GI/Abdominal GI/Abdominal exam: Present: normal bowel sounds, soft, no peritoneal signs. Absent: distended, hepatomegaly, tenderness - Extremities Exam Extremities exam: Present: normal capillary refill, warm, radial pulses palpable and symmetrical. Absent: calf tenderness, cyanotic, pedal edema - Neurological Exam Neurological exam: Present: alert, oriented X3, no focal deficits. Absent: facial droop, speech deficit - Skin Skin exam: Present: dry, intact, normal color, warm. Absent: rash
--- NOTE | 2017-01-10 21:53 | Electrocardiograph Report ---
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
== END 2017-01-10 14:30 | disposition home or self-care (01) | DRG 190 ==
LOC: EMEROO 23:48 → 3BNU 01-09 03:45
PROVIDERS: ADMIT Family Medicine; ATTEND Registered Nurse

== ENCOUNTER 2018-11-15 17:01 | Observation (INO) ==
--- NOTE | 2018-11-15 17:22 | Emergency Department Note ---
Disposition Clinical Impression: Elevated troponin, Alcohol use Fall Qualifiers: Encounter type: initial encounter Qualified Code(s): W19.XXXA - Unspecified fall, initial encounter Closed head injury Qualifiers: Encounter type: initial encounter Qualified Code(s): S09.90XA - Unspecified inj ury of head, initial encounter Disposition: Admitted As Inpatient Condition: Fair [facility] Care Provider[facility] - Time of Disposition: 21:50 Fall HPI - General Chief Complaint: ED Fall Stated Complaint: fall Time Seen by Provider: 11/15/18 17:05 Source: patient, EMS Mode of arrival: EMS Limitations: no limitations Nursing Notes Reviewed: Yes Vital Signs Reviewed: Yes - History of Present Illness HPI Narrative: 68M with Pmhx of frequent falls 2/2 etoh that reports to the ED after a fall onto the sidewalk. EMS reportedly found the patient on the sidewalk and tried to walk him home but he was A&O x 1 - self only, so brought him here for evaluation. Pt has no complaints at this time except right hip pain. He has a significant amount of dried blood on his face, but denies any facial pain. - Related Data Home Medications Medication Instructions Recorded Confirmed ALPRAZolam [Xanax 0.5 MG Tablet] 0.5 mg PO TID PRN 01/09/17 01/09/17 Albuterol Sulfate [Proventil Hfa] 2 puff IH QID PRN 01/09/17 01/09/17 Aspirin [Lo-Dose Aspirin EC] 81 mg PO DAILY 01/09/17 01/09/17 Atorvastatin Calcium [Lipitor] 10 mg PO HS 01/09/17 01/09/17 Levothyroxine [Synthroid] 25 mcg PO DAILY 01/09/17 01/09/17 Lisinopril [Zestril] 5 mg PO DAILY 01/09/17 01/09/17 Metformin HCl [Metformin ER 500 mg PO DAILY 01/09/17 01/09/17 Gastric] Metoprolol Succinate 100 mg PO DAILY 01/09/17 01/09/17 Multivitamin [One Daily 1 tab PO DAILY 01/09/17 01/09/17 Multivitamin] Oxybutynin Chloride [Ditropan Xl] 15 mg PO DAILY 01/09/17 01/09/17 Quetiapine Fumarate [Seroquel] 400 mg PO HS 01/09/17 01/09/17 Terbinafine HCl [Lamisil] 250 mg PO DAILY 01/09/17 01/09/17 Thiamine (B-1) [Vitamin B-1] 100 mg PO DAILY 01/09/17 01/09/17 raNITIdine HCl [Zantac] 150 mg PO BID PRN 01/09/17 01/09/17 Previous Rx's Medication Instructions Recorded GuaiFENesin ER [Mucinex] 600 mg PO BID #60 tbbp.12hr 01/10/17 Levofloxacin [Levaquin] 750 mg PO DAILY #7 tablet 01/10/17 Allergies Allergy/AdvReac Type Severity Reaction Status Date / Time Penicillins [PCN] Allergy Unknown Anaphylaxis Verified 01/09/17 13:51 Limitations: ROS unobtainable due to patients medical condition Fall PMH - Past Medical History Medical history: Reports: arthritis, COPD, hyperlipidemia, hypertension, TIA, other Surgical history: Reports: appendectomy, colectomy Psychiatric history: Reports: PTSD - Social History Smoking Status: Current every day smoker Alcohol use: Reports: heavy, recent Drug use: Reports: none Physical Exam GENERAL: Awake, alert, oriented to person. SKIN: Warm and well perfused. Abrasion present on RLE distal to knee, as well as smaller abrasion on the knee itself. Small abrasion present on left wrist. Small abrasion present on tip of nose, and over anterior aspect of right cheek. HEAD: Hematoma present on right parietal bone without evidence of overlying ecchymosis, erythema, or laceration. Facial bones without deformities or tenderness. EYES: PERRL. No scleral icterus or conjunctival injection. Extraocular muscles intact without diplopia. Extreme lateral gaze has horizontal nystagmus in both directions. No proptosis or enophthalmos. EARS: Normal appearing pinnae. No hemotympanum. NOSE: No discharge, laxity. No nasal septal hematoma. Evidence of recent epistaxis, but no current active bleeding. MOUTH: No malocclusion or trismus. Moist mucus membranes with blood on the tongue without evidence of laceration or abrasion on the tongue itself or buccal mucosa. Posterior pharynx without erythema or exudate. NECK: Trachea midline. No discolorations or edema. CV: Regular rate and rhythm, Normal s1 and s2. No murmurs, rubs, or gallops. PV: Radial pulses 2+ bilaterally and symmetric. Dorsalis pedis pulses 2+ bilaterally and symmetric. 2+ capillary refill. No extremity edema. CHEST: No abrasions or ecchymosis. Chest symmetric with respirations. No chest wall tenderness. No crepitus. No step offs. Lungs are clear to auscultation bilaterally. No rales, rhonchi, wheezing or stridor. ABDOMEN: No ecchymosis or abrasions. Soft, nondistended, nontender. Bowel tones normoactive. No masses or organomegaly. BACK: No abrasions, skin openings, or ecchymosis. Spine without bony tenderness, no step offs. PELVIC: Pelvis stable, nontender to lateral compression and palpation of symphysis pubis. MSK: No gross deformities or discolorations or lesions. Tolerates full range of motion of extremities without tenderness. - General Limitations: no limitations General appearance: alert, in no apparent distress Course - Consultations Consultation #1: Spoke with Dr. Tr Montenegro, ENT, and shared the CT results with him. He stated that it was recommended for this patient to follow up as an outpatient. He did not have any further recommendations at this time. Will make hospitalist aware. Time: 21:48 Vital Signs Temperature 98.1 F 11/15/18 17:05 Pulse Rate 97 11/15/18 17:05 Respiratory Rate 16 11/15/18 17:05 Blood Pressure 111/76 11/15/18 17:05 O2 Sat by Pulse Oximetry 96 11/15/18 17:05 Temperature 98.1 F 11/15/18 17:05 Pulse Rate 95 11/15/18 20:30 Respiratory Rate 16 11/15/18 20:30 Blood Pressure 132/79 11/15/18 19:55 O2 Sat by Pulse Oximetry 97 11/15/18 19:55 Oxygen Delivery Oxygen Delivery Room Air Fall - [facility] Narrative Medical decision making narrative: 68-year-old male with past medical history of multiple falls coming to the emergency department with recent fall and multiple abrasions. While the patient is not complaining of any bony tenderness, he appears to be intoxicated and cannot use nexus criteria for C-spine or head CT. We will obtain head CT, cervical spine CT, right hip x-ray, left wrist x-ray, right knee x-ray. We will also obtain EKG. Head CT showed concern for left medial maxillary sinus fracture, however ENT declined the need to intervene at this time. Other x-rays were negative for acute fracture. Blood work showed elevated troponin, elevated etoh. When patient attempted to ambulate to the restroom, he was unable to ambulate secondary to dizziness. Initial EKG did show some concern for ST segment depressions, however given patient's tachycardia on initial film will obtain secondary EKG. Second EKG did not show any concerns for ST segment elevation, although troponin was positive. Previous values of troponin during previous hospital encounters were elevated as well, however, given the patient's presentation, elevated alcohol level, inability to ambulate, it was thought he would benefit from further inpatient treatment and workup. Pt was initially resistant to admission, but when we explained our concerns he agreed to admission. Patient was admitted to the hospitalist Dr. Barron by my attending Dr. Zelaya. Results of the workup including any imaging and/or labwork was shared with the patient at bedside. Patient was given an opportunity to ask questions a t bedside and all of their concerns were addressed. Patient verbalized understanding and agreement with plan of care. Pt remained stable while in the department. - Medical Records Medical records reviewed: Yes I reviewed the patient's medical records. - Lab Data Lab results reviewed: Yes I reviewed the patient's lab results. Result diagrams: 11/15/18 18:28 11/15/18 18:28 Lab Results 11/15/18 11/15/18 11/15/18 Range/Units 18:28 18:28 18:28 WBC 9.8 (4.3-11.1) K/mcL RBC 4.36 (4.19-5.50) M/mcL Hgb 14.4 (12.9-16.9) g/dL Hct 43.0 (37.5-50.1) % MCV 98.6 (83.0-100.0) fL MCH 33.0 (28.0-33.3) pg MCHC 33.5 (31.6-35.5) g/dL RDW 15.1 H (11.5-14.5) % Plt Count 142 (140-400) K/mcL MPV 10.5 (9.4-12.4) fL Immature Gran % 0.6 (0-4) % Seg Neutrophils % 74.4 % Lymphocytes % 14.3 % Monocytes % 9.1 % Eosinophils % 1.0 % Basophils % 0.6 % Neutrophils # 7.3 (1.6-8.9) K/mcL Lymphocytes # 1.4 (0.6-4.6) K/mcL Monocytes # 0.9 (0.0-1.3) K/mcL Eosinophils # 0.1 (0.0-0.6) K/mcL Basophils # 0.1 (0.0-0.2) K/mcL PT 11.1 (9.4-12.1) Seconds INR 1.0 APTT 29.9 (26.0-36.0) Seconds Sodium 138 (136-145) mEq/L Potassium 3.9 (3.5-5.1) mEq/L Chloride 104 (98-107) mEq/L Carbon Dioxide 21 L (23-29) mEq/L BUN 13 (8-23) mg/dL Creatinine 0.85 (0.70-1.30) mg/dL Est GFR ( Amer) > 60 (> 60) Est GFR (Non-Af Amer) > 60 (> 60) BUN/Creatinine Ratio 15 (6-26) Glucose 84 (70-105) mg/dL Calculated Osmolality 285 (280-300) Calcium 8.9 (8.6-10.3) mg/dL Total Bilirubin 0.7 (0.3-1.0) mg/dL Direct Bilirubin 0.2 (0.0-0.2) mg/dL Indirect Bilirubin 0.5 (0.0-1.2) mg/dL AST 41 H (13-39) Units/L ALT 31 (7-52) Units/L Alkaline Phosphatase 127 H (34-104) Units/L Ammonia (16-53) mcmol/L Troponin I 0.05 H* (< 0.04) ng/mL Serum Total Protein 6.7 (6.4-8.9) g/dL Albumin 4.0 (3.5-5.7) g/dL Globulin 2.7 (2.4-3.5) g/dL Albumin/Globulin Ratio 1.5 (1.1-2.2) Ethyl Alcohol (Less than 10) mg/dL 07/24/19 07/24/19 Range/Units 18:28 19:30 WBC (4.3-11.1) K/mcL RBC (4.19-5.50) M/mcL Hgb (12.9-16.9) g/dL Hct (37.5-50.1) % MCV (83.0-100.0) fL MCH (28.0-33.3) pg MCHC (31.6-35.5) g/dL RDW (11.5-14.5) % Plt Count (140-400) K/mcL MPV (9.4-12.4) fL Immature Gran % (0-4) % Seg Neutrophils % % Lymphocytes % % Monocytes % % Eosinophils % % Basophils % % Neutrophils # (1.6-8.9) K/mcL Lymphocytes # (0.6-4.6) K/mcL Monocytes # (0.0-1.3) K/mcL Eosinophils # (0.0-0.6) K/mcL Basophils # (0.0-0.2) K/mcL PT (9.4-12.1) Seconds INR APTT (26.0-36.0) Seconds Sodium (136-145) mEq/L Potassium (3.5-5.1) mEq/L Chloride (98-107) mEq/L Carbon Dioxide (23-29) mEq/L BUN (8-23) mg/dL Creatinine (0.70-1.30) mg/dL Est GFR ( Amer) (> 60) Est GFR (Non-Af Amer) (> 60) BUN/Creatinine Ratio (6-26) Glucose (70-105) mg/dL Calculated Osmolality (280-300) Calcium (8.6-10.3) mg/dL Total Bilirubin (0.3-1.0) mg/dL Direct Bilirubin (0.0-0.2) mg/dL Indirect Bilirubin (0.0-1.2) mg/dL AST (13-39) Units/L ALT (7-52) Units/L Alkaline Phosphatase (34-104) Units/L Ammonia 29 (16-53) mcmol/L Troponin I (< 0.04) ng/mL Serum Total Protein (6.4-8.9) g/dL Albumin (3.5-5.7) g/dL Globulin (2.4-3.5) g/dL Albumin/Globulin Ratio (1.1-2.2) Ethyl Alcohol 245 H (Less than 10) mg/dL - Radiology Data Radiology results reviewed: Yes I reviewed the patient's radiology results. Cervical Spine CT 11/15/18 17:08 IMPRESSION: No acute cervical spine fracture identified. D/ / Christopher Miller / Christopher Miller Interpreting Provider: Christopher Miller Head CT 11/15/18 17:08 IMPRESSION: 1. Air within and inferior to the right orbit with fractures of the medial and posterior orbital carreon. In addition, the right maxillary sinus appears to contain blood products with suspected fracture along the medial wall. Dedicated maxillofacial CT is recommended for complete assessment. 2. No acute intracranial abnormality. D/ / 11/15/2018 17:51:00 Goran Sevilla MD / freddie Interpreting Provider: Goran Sevilla MD Hip X-Ray 11/15/18 17:14 IMPRESSION: Right hip: No acute osseous abnormality. Right knee: Mild osteoarthrosis without acute abnormality. D/ / Ramirez Laws MD / Ramirez Laws MD Interpreting Provider: Ramirez Laws MD Knee X-Ray 11/15/18 17:14 IMPRESSION: Right hip: No acute osseous abnormality. Right knee: Mild osteoarthrosis without acute abnormality. D/ / Ramirez Lwas MD / Ramirez Laws MD Interpreting Provider: Ramirez Laws MD Wrist X-Ray 11/15/18 17:14 IMPRESSION: No acute abnormality identified. Hooked osteophytes at the metacarpophalangeal joints, especially the 3rd MCP, which raise the possibility of CPPD arthropathy. D/ / Reno Richardson MD / Reno Richardson MD Interpreting Provider: Reno Richardson MD Chest X-Ray 11/15/18 18:15 IMPRESSION: No acute abnormality identified. D/ / Reno Richardson MD / Reno Richardson MD Interpreting Provider: Reno Richardson MD - EKG Data EKG attestation: Yes I reviewed and interpreted this EKG. EKG results narrative: 1809: Heart rate 87, rhythm sinus, axis normal. [place] 159, QRS 94, QTc [address] depressions noted in leads aVL, lead 3, lead 1, ABS, V3, V2, however there is baseline wander which limits interpretation. We will obtain a second EKG. 1843: Heart rate 85, rhythm sinus, axis normal. [place] 160, QRS 86, QTC 448. No ST segment elevations or depressions noted in repeat EKG. When compared to previous study dated 01/16/2018 this study is largely consistent. Attestation Statement - Attestation Attestation: I, Ronnie Zelaya DO, examined this patient [id number] and my medical deci saqib-making was reviewed with Dr. Wilda Britt, Resident Physician. I agree with the documented findings, disposition and treatment plan as described except to the extent set forth below. I personally supervised and was present for the franco/critical portions of the procedures completed by the resident documented below. Please see my progress notes for details.
--- NOTE | 2018-11-15 18:17 | Emergency Department Note ---
Disposition Clinical Impression: Elevated troponin, Alcohol use, Fall, Closed head injury Disposition: Admitted As Inpatient Condition: Fair [facility]: [facility] [[facility] Provider[facility] - Forms: ED Satisfaction Letter Time of Disposition: 21:08 General Adult HPI - General Chief complaint: ED Fall Stated complaint: fall Time Seen by Provider: 11/15/18 17:05 Source: patient, EMS Mode of arrival: EMS Limitations: no limitations - History of Present Illness Pain Scale: 10 - Related Data Home Medications Medication Instructions Recorded Confirmed ALPRAZolam [Xanax 0.5 MG Tablet] 0.5 mg PO TID PRN 01/09/17 01/09/17 Albuterol Sulfate [Proventil Hfa] 2 puff IH QID PRN 01/09/17 01/09/17 Aspirin [Lo-Dose Aspirin EC] 81 mg PO DAILY 01/09/17 01/09/17 Atorvastatin Calcium [Lipitor] 10 mg PO HS 01/09/17 01/09/17 Levothyroxine [Synthroid] 25 mcg PO DAILY 01/09/17 01/09/17 Lisinopril [Zestril] 5 mg PO DAILY 01/09/17 01/09/17 Metformin HCl [Metformin ER 500 mg PO DAILY 01/09/17 01/09/17 Gastric] Metoprolol Succinate 100 mg PO DAILY 01/09/17 01/09/17 Multivitamin [One Daily 1 tab PO DAILY 01/09/17 01/09/17 Multivitamin] Oxybutynin Chloride [Ditropan Xl] 15 mg PO DAILY 01/09/17 01/09/17 Quetiapine Fumarate [Seroquel] 400 mg PO HS 01/09/17 01/09/17 Terbinafine HCl [Lamisil] 250 mg PO DAILY 01/09/17 01/09/17 Thiamine (B-1) [Vitamin B-1] 100 mg PO DAILY 01/09/17 01/09/17 raNITIdine HCl [Zantac] 150 mg PO BID PRN 01/09/17 01/09/17 Previous Rx's Medication Instructions Recorded GuaiFENesin ER [Mucinex] 600 mg PO BID #60 tbbp.12hr 01/10/17 Levofloxacin [Levaquin] 750 mg PO DAILY #7 tablet 01/10/17 Allergies Allergy/AdvReac Type Severity Reaction Status Date / Time Penicillins [PCN] Allergy Unknown Anaphylaxis Verified 01/09/17 13:51 Past Medical History - Past Medical History Medical history: Reports: arthritis, COPD, hyperlipidemia, hypertension, TIA, other Surgical history: Reports: appendectomy, colectomy Psychiatric history: Reports: PTSD - Social History Smoking Status: Current every day smoker Smokeless Tobacco Status: No Alcohol use: Reports: heavy, recent Drug use: Reports: none Physical Exam - General Limitations: no limitations General appearance: alert, in no apparent distress Course Vital Signs Temperature 98.1 F 11/15/18 17:05 Pulse Rate 97 11/15/18 17:05 Respiratory Rate 16 11/15/18 17:05 Blood Pressure 111/76 11/15/18 17:05 O2 Sat by Pulse Oximetry 96 11/15/18 17:05 Temperature 98.1 F 11/15/18 17:05 Pulse Rate 95 11/15/18 20:30 Respiratory Rate 16 11/15/18 20:30 Blood Pressure 132/79 11/15/18 19:55 O2 Sat by Pulse Oximetry 97 11/15/18 19:55 Oxygen Delivery Oxygen Delivery Room Air Medical Decision Making - Lab Data Result diagrams: 11/15/18 18:28 11/15/18 18:28 Lab Results 11/15/18 11/15/18 11/15/18 Range/Units 18:28 18:28 18:28 WBC 9.8 (4.3-11.1) K/mcL RBC 4.36 (4.19-5.50) M/mcL Hgb 14.4 (12.9-16.9) g/dL Hct 43.0 (37.5-50.1) % MCV 98.6 (83.0-100.0) fL MCH 33.0 (28.0-33.3) pg MCHC 33.5 (31.6-35.5) g/dL RDW 15.1 H (11.5-14.5) % Plt Count 142 (140-400) K/mcL MPV 10.5 (9.4-12.4) fL Immature Gran % 0.6 (0-4) % Seg Neutrophils % 74.4 % Lymphocytes % 14.3 % Monocytes % 9.1 % Eosinophils % 1.0 % Basophils % 0.6 % Neutrophils # 7.3 (1.6-8.9) K/mcL Lymphocytes # 1.4 (0.6-4.6) K/mcL Monocytes # 0.9 (0.0-1.3) K/mcL Eosinophils # 0.1 (0.0-0.6) K/mcL Basophils # 0.1 (0.0-0.2) K/mcL PT 11.1 (9.4-12.1) Seconds INR 1.0 APTT 29.9 (26.0-36.0) Seconds Sodium 138 (136-145) mEq/L Potassium 3.9 (3.5-5.1) mEq/L Chloride 104 (98-107) mEq/L Carbon Dioxide 21 L (23-29) mEq/L BUN 13 (8-23) mg/dL Creatinine 0.85 (0.70-1.30) mg/dL Est GFR ( Amer) > 60 (> 60) Est GFR (Non-Af Amer) > 60 (> 60) BUN/Creatinine Ratio 15 (6-26) Glucose 84 (70-105) mg/dL Calculated Osmolality 285 (280-300) Calcium 8.9 (8.6-10.3) mg/dL Total Bilirubin 0.7 (0.3-1.0) mg/dL Direct Bilirubin 0.2 (0.0-0.2) mg/dL Indirect Bilirubin 0.5 (0.0-1.2) mg/dL AST 41 H (13-39) Units/L ALT 31 (7-52) Units/L Alkaline Phosphatase 127 H (34-104) Units/L Ammonia (16-53) mcmol/L Troponin I 0.05 H* (< 0.04) ng/mL Serum Total Protein 6.7 (6.4-8.9) g/dL Albumin 4.0 (3.5-5.7) g/dL Globulin 2.7 (2.4-3.5) g/dL Albumin/Globulin Ratio 1.5 (1.1-2.2) Ethyl Alcohol (Less than 10) mg/dL 11/15/18 11/15/18 Range/Units 18:28 19:30 WBC (4.3-11.1) K/mcL RBC (4.19-5.50) M/mcL Hgb (12.9-16.9) g/dL Hct (37.5-50.1) % MCV (83.0-100.0) fL MCH (28.0-33.3) pg MCHC (31.6-35.5) g/dL RDW (11.5-14.5) % Plt Count (140-400) K/mcL MPV (9.4-12.4) fL Immature Gran % (0-4) % Seg Neutrophils % % Lymphocytes % % Monocytes % % Eosinophils % % Basophils % % Neutrophils # (1.6-8.9) K/mcL Lymphocytes # (0.6-4.6) K/mcL Monocytes # (0.0-1.3) K/mcL Eosinophils # (0.0-0.6) K/mcL Basophils # (0.0-0.2) K/mcL PT (9.4-12.1) Seconds INR APTT (26.0-36.0) Seconds Sodium (136-145) mEq/L Potassium (3.5-5.1) mEq/L Chloride (98-107) mEq/L Carbon Dioxide (23-29) mEq/L BUN (8-23) mg/dL Creatinine (0.70-1.30) mg/dL Est GFR ( Amer) (> 60) Est GFR (Non-Af Amer) (> 60) BUN/Creatinine Ratio (6-26) Glucose (70-105) mg/dL Calculated Osmolality (280-300) Calcium (8.6-10.3) mg/dL Total Bilirubin (0.3-1.0) mg/dL Direct Bilirubin (0.0-0.2) mg/dL Indirect Bilirubin (0.0-1.2) mg/dL AST (13-39) Units/L ALT (7-52) Units/L Alkaline Phosphatase (34-104) Units/L Ammonia 29 (16-53) mcmol/L Troponin I (< 0.04) ng/mL Serum Total Protein (6.4-8.9) g/dL Albumin (3.5-5.7) g/dL Globulin (2.4-3.5) g/dL Albumin/Globulin Ratio (1.1-2.2) Ethyl Alcohol 245 H (Less than 10) mg/dL Attestation Statement - Attestation Attestation: I, Ronnie Garcia DO, examined this patient [id number] and my medical decision-making was reviewed with Dr. Wilda Britt, Resident Physician. I agree with the documented findings, disposition and treatment plan as described except to the extent set forth below. I personally supervised and was present for the franco/critical portions of the procedures completed by the resident documented below. Please see my progress notes for details. 68-year-old male presents emergency room after tripping and falling on the street. Patient is a known drinker. He is drinking today is carrying food back to his home. Tripped and fell forward hitting his face on the ground and his arm. Patient denies any other headache or vision change. No other symptoms prior to the events here today outside of intoxication. Patient has abrasions and brought across the face. He also has blood from the right nostril. He has no pain in his head at this time. No pain with movement of the neck. Patient denies any other symptoms leading up to the events here today outside of drinking. Patient is otherwise alert and answering questions on arrival. Head is otherwise atraumatic outside of the bruising. He has no midline tenderness to cervical thoracic or lumbar spine. He has abrasions to his knee in his wr ist. He has no chest wall deformity or injury. Lungs are clear heart is regular. Abdomen is soft. CT imaging of the head along with cervical spine imaging will be completed secondary to the patient not being able to be cleared by your stratification criteria secondary to alcohol intoxication. EKG will also be collected secondary to the unknown etiology to the fall approximate 7 feet from the door of his house. No labs required at this point. Upon the findings during this initial workup. Patient also plain films of the knee and wrist. Patient is otherwise clinically stable. We will monitor here as the wounds are dressed and evaluated. His tetanus is not up-to-date within the last year. Disposition pending full workup and treatment course. EKG reviewed by myself and documented resident physician's note. No critical care by the patient's treatment course at this time. See detailed documentation the physical exam, 1999 Patient's alcohol level is greater than 200. Patient will accommodate a admission of this time secondary to the elevated troponin. Repeat EKG did not show any acute abnormality or signs of myocardial infarction. The patient is denying chest pain still at this point. Patient's labs be trended. Aspirin has been given. No signs of intracranial bleed or structural abnormality noted on the imaging modalities. Patient is still ataxic while here in the emergency department. Patient will be monitored here until the admission process is completed. 2100 Patient was discussed with the hospitalist Dr. Barron. Detailed review of the described symptoms the fall as well as alcohol abuse were discussed at length. Elevated troponin EKG abnormality was initially noted were also reviewed. Patient is still denying chest pain. He has no other complaints at this time. Patient will be monitored here in the emergency room to the admis saqib is completed. Aspirin has been given. No indication at this point for heparinization and especially since the patient does have alcohol on board.
[2018-11-15 18:40] LABS: Basophils # 0.1 K/mcL (0.0-0.2); Basophils % 0.6 %; Eosinophils # 0.1 K/mcL (0.0-0.6); Hemoglobin 14.4 g/dL (12.9-16.9); Immature Granulocytes % 0.6 % (0-4); Lymphocytes # 1.4 K/mcL (0.6-4.6); Lymphocytes % 14.3 %; Mean Corpuscular HGB Conc 33.5 g/dL (31.6-35.5); Mean Corpuscular Volume 98.6 fL (83.0-100.0); Mean Platelet Volume 10.5 fL (9.4-12.4); Monocytes # 0.9 K/mcL (0.0-1.3); Monocytes % 9.1 %; Neutrophils # 7.3 K/mcL (1.6-8.9); Platelet Count 142 K/mcL (140-400); Red Blood Count 4.36 M/mcL (4.19-5.50); Red Cell Distribution Width 15.1 % (11.5-14.5); Segmented Neutrophils % 74.4 %; White Blood Count 9.8 K/mcL (4.3-11.1)
[2018-11-15 18:47] LABS: Prothrombin Time 11.1 Seconds (9.4-12.1)
[2018-11-15 18:50] LABS: Activated Partial Thrombo Time 29.9 Seconds (26.0-36.0)
[2018-11-15 19:01] LABS: Alanine Aminotransferase 31 Units/L (7-52); Albumin/Globulin Ratio 1.5 (1.1-2.2); Alkaline Phosphatase 127 Units/L (34-104); Aspartate Amino Transferase 41 Units/L (13-39); BUN/Creatinine Ratio 15 (6-26); Bilirubin,Direct 0.2 mg/dL (0.0-0.2); Bilirubin,Indirect 0.5 mg/dL (0.0-1.2); Bilirubin,Total 0.7 mg/dL (0.3-1.0); Blood Urea Nitrogen 13 mg/dL (8-23); Calcium 8.9 mg/dL (8.6-10.3); Carbon Dioxide 21 mEq/L (23-29); Chloride 104 mEq/L (98-107); Globulin 2.7 g/dL (2.4-3.5); Glucose 84 mg/dL (70-105); Osmolality,Calculated 285 (280-300); Potassium 3.9 mEq/L (3.5-5.1); Sodium 138 mEq/L (136-145); Total Protein 6.7 g/dL (6.4-8.9); eGFR For African Americans > 60 (> 60); eGFR For Non-African Americans > 60 (> 60)
[2018-11-15 19:20] LABS: Troponin I 0.05 ng/mL (< 0.04)
[2018-11-15] MEDS ORDERED: Aspirin 81 MG TAB.CHEW PO STA (19:23)
[2018-11-15] MEDS ORDERED: Aspirin 325 MG TABLET PO ONE (19:23)
[2018-11-15] MEDS ORDERED: 0.9 % Sodium Chloride 1,000 ML IVC ONE (19:24)
--- NOTE | 2018-11-15 22:53 | Internal Med History&Physical ---
Date of Encounter: 11/15/18 Time of Encounter: 22:50 Internal Medicine - H&P: HPI Chief complaint: Elevated troponin Admitted From: Emergency Dept Plans for Post Hospital Care: Home History of present illness: Mr. Macdonald is a 68 year old male Patient presented to the emergency department after a fall onto the sidewalk. EMS found the patient outside, only oriented to self with dried blood on his face. They brought him in for further evaluation. Patient does not remember what happened. He says that he does remember drinking a few beers this morning and may be a shot at a bar, he then remembers going across the street to get food to take home, but he obviously did not make it. At that point he does not recall the events that occurred. Initial vital signs: Temperature 98.1, pulse 97, respiratory rate 16, blood pressure 111/76, O2 saturation 96% on room air CBC: Within normal limits BMP: Within normal limits Liver enzymes: Elevated AST slightly to 41, slight elevation of alkaline phosphatase of 127. ALT normal at 31. Ammonia level 29 Troponin 0.05 Blood alcohol level 245 Chest x-ray no acute abnormality Wrist x-ray no acute abnormality Right knee x-ray no acute abnormality Right hip x-ray no acute abnormality Head CT: IMPRESSION: 1. Air within and inferior to the right orbit with fractures of the medial and posterior orbital carreon. In addition, the right maxillary sinus appears to contain blood products with suspected fracture along the medial wall. Dedicated maxillofacial CT is recommended for complete assessment. 2. No acute intracranial abnormality. Cervical spine CT no acute fracture identified EKG: Normal sinus rhythm rate 87, QTC 520, repeat EKG QTC 448. No ST changes Emergency department, patient received 1 L of IV fluids, as well as aspirin. He was admitted to the hospital for observation of his elevated troponin. Upon review of his imaging, hospitalist requested that the ER notify ENT on-call regarding the patient's head CT. They spoke with Dr. Montenegro who recommended outpatient follow-up. Upon my evaluation, patient is resting comfortably in the hospital bed in no acute distress. He is now oriented to self, place, situation as well as the da y. He did not know the date. Has abrasions to his nose, head, left eyebrow, hands and right knee. He denies headache, vision changes, chest pain, abdominal pain, nausea, vomiting, diarrhea and constipation. He states that he drinks about 3 beers a day as well as a shot of hard liquor. He is a pack of cigarettes daily smoker. He denies other drug use. [facility] When asked about his CODE STATUS, patient states that he is a DNR/DNI, requesting no chest compressions or intubation if they were required. Past Med Surg Social Fam HX - Past Medical History Medical history: arthritis, COPD, hyperlipidemia, hypertension, TIA, other Additional medical history: unable to obtain Psychiatric history: PTSD - Past Surgical History Surgical History: appendectomy, colectomy Additional surgical history: unable to obtain - Social History Smoking Status: Current every day smoker Smokeless Tobacco Status: No Alcohol use: heavy, recent Drug use: none - Family History Father Living Status: Hx Family Cardiac Disorders: Yes Hx Family Respiratory Disorders: Yes Hx Family Cancer: No Hx Family GI Disorders: No Hx Family Endocrine Disorder: No Hx Family Neuromuscular Disorders: No Hx Family Neurologic Disorders: No Hx Family HEENT Disorders: No Hx Family Autoimmune Disorders: No Internal Medicine - H&P: Meds ALPRAZolam [Xanax 0.5 MG Tablet] 0.5 mg PO TID PRN 01/09/17 [History] Albuterol Sulfate [Proventil Hfa] 2 puff IH QID PRN 01/09/17 [History] Aspirin [Lo-Dose Aspirin EC] 81 mg PO DAILY 01/09/17 [History] Atorvastatin Calcium [Lipitor] 10 mg PO HS 01/09/17 [History] Levothyroxine [Synthroid] 25 mcg PO DAILY 01/09/17 [History] Lisinopril [Zestril] 5 mg PO DAILY 01/09/17 [History] Metformin HCl [Metformin ER Gastric] 500 mg PO DAILY 01/09/17 [History] Metoprolol Succinate 100 mg PO DAILY 01/09/17 [History] Multivitamin [One Daily Multivitamin] 1 tab PO DAILY 01/09/17 [History] Oxybutynin Chloride [Ditropan Xl] 15 mg PO DAILY 01/09/17 [History] Quetiapine Fumarate [Seroquel] 400 mg PO HS 01/09/17 [History] Terbinafine HCl [Lamisil] 250 mg PO DAILY 01/09/17 [History] Thiamine (B-1) [Vitamin B-1] 100 mg PO DAILY 01/09/17 [History] raNITIdine HCl [Zantac] 150 mg PO BID PRN 01/09/17 [History] GuaiFENesin ER [Mucinex] 600 mg PO BID #60 tbbp.12hr 01/10/17 [Rx] Levofloxacin [Levaquin] 750 mg PO DAILY #7 tablet 01/10/17 [Rx] Allergy/AdvReac Type Severity Reaction Status Date / Time Penicillins [PCN] Allergy Unknown Anaphylaxis Verified 01/09/17 13:51 All Systems PM: A 10-system review of systems was performed and is negative for pertinent findings except as documented above in the HPI. - Constitutional Vitals: Temp Pulse Resp BP Pulse Ox 98.0 F 90 17 167/96 96 11/15/18 22:38 11/15/18 22:38 11/15/18 22:38 11/15/18 22:38 11/15/18 22:38 General appearance: Present: cooperative, A&O X 3, pleasant, no acute distress, answers questions appropriately Exam: - - Head Head exam: Present: normal inspection - Eye Eye exam: Present: EOMI, normal appearance - ENT Additional comments: Abrasion to nose, and left eyebrow - Respiratory Respiratory exam: Present: wheezes. Absent: decreased breath sounds, CTAB, rales, respiratory distress, rhonchi - Cardiovascular Cardiovascular exam: Present: clicks, RRR. Absent: diastolic murmur, systolic murmur - GI/Abdominal GI/Abdominal exam: Present: normal bowel sounds, soft. Absent: tenderness - Extremities Exam Extremities exam: Present: warm, radial pulses palpable and symmetrical. Absent: calf tenderness, pedal edema, tenderness Additional comments: Large right knee abrasion - Neurological Exam Neurological exam: Present: no focal deficits, strengths equal and symetr t hroughout. Absent: motor sensory deficit, facial droop, speech deficit - Skin Skin exam: Present: abrasion, dry, normal color, warm Additional comments: Multiple abrasions, large right knee abrasion, nose abrasion, left eyebrow abras ion. Dried blood around fingernails and hands. No active bleeding Internal Med - H&P Results - Labs CBC & Chem 7: 11/15/18 18:28 11/15/18 18:28 Labs: Short CBC 11/15/18 Range/Units 18:28 WBC 9.8 (4.3-11.1) K/mcL Hgb 14.4 (12.9-16.9) g/dL Hct 43.0 (37.5-50.1) % Plt Count 142 (140-400) K/mcL Neutrophils # 7.3 (1.6-8.9) K/mcL BMP 11/15/18 18:28 Sodium 138 Potassium 3.9 Chloride 104 Carbon Dioxide 21 L BUN 13 Creatinine 0.85 Glucose 84 Calcium 8.9 Cardiac Enzymes 11/15/18 Range/Units 18:28 Troponin I 0.05 H* (< 0.04) ng/mL Liver Function 11/15/18 Range/Units 18:28 Total Bilirubin 0.7 (0.3-1.0) mg/dL Direct Bilirubin 0.2 (0.0-0.2) mg/dL AST 41 H (13-39) Units/L ALT 31 (7-52) Units/L Alkaline Phosphatase 127 H (34-104) Units/L Albumin 4.0 (3.5-5.7) g/dL - Impressions ITS Impressions Cervical Spine CT 11/15/18 17:08 IMPRESSION: No acute cervical spine fracture identified. D/ / Christopher Miller / Christopher Miller Interpreting Provider: Christopher Miller Head CT 11/15/18 17:08 IMPRESSION: 1. Air within and inferior to the right orbit with fractures of the medial and posterior orbital carreon. In addition, the right maxillary sinus appears to contain blood products with suspected fracture along the medial wall. Dedicated maxillofacial CT is recommended for complete assessment. 2. No acute intracranial abnormality. D/ / 11/15/2018 17:51:00 Goran Sevilla MD / freddie Interpreting Provider: Goran Sevilla MD Hip X-Ray 11/15/18 17:14 IMPRESSION: Right hip: No acute osseous abnormality. Right knee: Mild osteoarthrosis without acute abnormality. D/ / Ramirez Laws MD / Ramirez Laws MD Interpreting Provider: Ramirez Laws MD Knee X-Ray 11/15/18 17:14 IMPRESSION: Right hip: No acute osseous abnormality. Right knee: Mild osteoarthrosis without acute abnormality. D/ / Ramirez Laws MD / Ramirez Laws MD Interpreting Provider: Ramirez Laws MD Wrist X-Ray 11/15/18 17:14 IMPRESSION: No acute abnormality identified. Hooked osteophytes at the metacarpophalangeal joints, especially the 3rd MCP, which raise the possibility of CPPD arthropathy. D/ / Reno Richardson MD / Reno Richardson MD Interpreting Provider: Reno Richardson MD Chest X-Ray 11/15/18 18:15 IMPRESSION: No acute abnormality identified. D/ / Reno Richardson MD / Reno Richardson MD Interpreting Provider: Reno Richardson MD - Assessment and Plan (1) Elevated troponin Current Visit: Yes Status: Acute Assessment and plan: Troponin elevated at 0.05. Patient has had elevated troponins in the past, most recently in 2016. He has received echocardiograms as well. EKG nonischemic, patient denies chest pain Most recent echocardiogram: Left ventricular ejection fraction 60-65% Mild concentric left ventricular hypertrophy Mild left ventricular diastolic dysfunction Normal right ventricular structure and function Unable to estimate RVSP due to lack of TR jet No significant valvular dysfunction Continue to monitor troponin Cardiac monitoring Repeat echocardiogram in the morning (2) Closed head injury Current Visit: Yes Status: Acute Assessment and plan: Head CT showed fractures of the orbits and maxillary sinus. ENT notified from the emergency department, they recommended follow-up outpatient and no other recommendations. Continue to monitor Qualifiers: Encounter type: initial encounter Qualified Code(s): S09.90XA - Unspecified injury of head, initial encounter (3) Fall Current Visit: Yes Status: Acute Assessment and plan: Secondary to alcohol abuse resulting in head fractures and multiple abrasions. Continue to monitor Qualifiers: Encounter type: initial encounter Qualified Code(s): W19.XXXA - Unspecified fall, initial encounter (4) Alcohol use Current Visit: Yes Status: Acute Assessment and plan: Patient is a heavy drinker, his intoxication likely resulted in his fall. Blood alcohol level 245. Will monitor withdrawal, but hold off on CIWA protocol at this time considering acute intoxication. (5) Diabetes mellitus Current Visit: No Status: Chronic Assessment and plan: Patient is not an insulin dependent diabetic Monitor sugars every 6 hours Diabetic diet until midnight and nothing by mouth Low dose insulin sliding scale as needed Hold home meds. Qualifiers: Diabetes mellitus type: type 2 Diabetes mellitus retirement insulin use: without retirement use Diabetes mellitus complication status: without complication Qualified Code(s): E11.9 - Type 2 diabetes mellitus without complications (6) Tobacco abuse Current Visit: No Status: Chronic Assessment and plan: Patient declines nicotine patch (7) DVT prophylaxis Current Visit: No Status: Acute Assessment and plan: SCDs considering head CT findings of blood products seen in the sinuses and fractures - Time Spent With Patient Total time spent is greater than 50% in coordination of care (as documented) at patient's floor/unit and/or counseling patient: Greater than 35 minutes
[2018-11-15] MEDS ORDERED: Naloxone 0.4 MG/ML INJ IVP PRN (23:14)
[2018-11-15] MEDS ORDERED: 0.9 % Sodium Chloride 1,000 ML IVC SCH (23:15)
[2018-11-15] MEDS ORDERED: *HR* Dextrose 50 % in Water (Syg) 50 ML SYRINGE IVP PRN (23:25)
[2018-11-15] MEDS ORDERED: Dextrose Gel 15 GM/37.5 ML TUBE PO PRN ×2 (23:25)
[2018-11-15] MEDS ORDERED: D5% in Water 1,000 ML IVC PRN (23:25)
[2018-11-15] MEDS ORDERED: Folic Acid 1 MG TABLET PO SCH (23:45)
[2018-11-15] MEDS: Vitamin B Complex/Vit C/Vit E 1 EACH TABLET PO SCH (23:51)
[2018-11-16] MEDS: Insulin LISPRO 300 UNITS/3 ML VIAL SQ SCH ×2 (00:15→07:02)
[2018-11-16] MEDS ORDERED: Albuterol 2.5 MG/3 ML NEBULIZER IH PRN (00:19)
[2018-11-16 06:39] LABS: Hematocrit 42.9 % (37.5-50.1); Hemoglobin 14.5 g/dL (12.9-16.9); Mean Corpuscular HGB Conc 33.8 g/dL (31.6-35.5); Mean Corpuscular Hemoglobin 32.8 pg (28.0-33.3); Mean Corpuscular Volume 97.1 fL (83.0-100.0); Mean Platelet Volume 10.6 fL (9.4-12.4); Platelet Count 135 K/mcL (140-400); Red Blood Count 4.42 M/mcL (4.19-5.50); White Blood Count 9.6 K/mcL (4.3-11.1)
[2018-11-16 07:00] LABS: Alanine Aminotransferase 24 Units/L (7-52); Albumin 3.9 g/dL (3.5-5.7); Albumin/Globulin Ratio 1.4 (1.1-2.2); Alkaline Phosphatase 139 Units/L (34-104); Aspartate Amino Transferase 32 Units/L (13-39); BUN/Creatinine Ratio 14 (6-26); Bilirubin,Total 0.7 mg/dL (0.3-1.0); Blood Urea Nitrogen 11 mg/dL (8-23); Calcium 9.2 mg/dL (8.6-10.3); Carbon Dioxide 26 mEq/L (23-29); Chloride 103 mEq/L (98-107); Cholesterol 126 mg/dL (< 200); Globulin 2.8 g/dL (2.4-3.5); Glucose 91 mg/dL (70-105); Osmolality,Calculated 291 (280-300); Sodium 141 mEq/L (136-145); Total Protein 6.7 g/dL (6.4-8.9); Triglycerides 49 mg/dL (< 150); Troponin I 0.04 ng/mL (< 0.04); eGFR For African Americans > 60 (> 60); eGFR For Non-African Americans > 60 (> 60)
[2018-11-16 08:27] LABS: HDL Cholesterol 63 mg/dL (40-59); LDL Cholesterol,Calculated 53 mg/dL (0-99)
[2018-11-16] MEDS: Vitamin B Complex/Vit C/Vit E 1 EACH TABLET PO SCH (09:05)
--- NOTE | 2018-11-16 13:18 | Discharge Summary ---
- NOTES TO OUTPATIENT PROVIDER Notes to Outpatient Provider: Patient with history of COPD, hypertension and hyperlipidemia, PTSD who was hospitalized after he of fall onto the sidewalk. Patient was evaluated in the ER with multiple CT scans to rule out any fractures. He did have fractures of the medial and posterior orbital carreon and also possible fracture of the right maxillary sinus medial wall. ENT was called and they recommended outpatient follow-up. Patient did have an elevated blood alcohol level and also had mild elevation in his troponin to 0.05. As such he was observed in the hospital overnight. Repeat troponin checks have been adynamic at 0.04. Patient has not had any chest pain. EKG was has been normal. He is presently doing much better and is stable for discharge. We will arrange for outpatient follow-up with ENT. 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 Macdonald is a 68 year old male Patient with history of COPD, hypertension and hyperlipidemia, PTSD , alcohol abuse who was hospitalized after he of fall onto the sidewalk. Patient was evaluated in the ER with multiple CT scans to rule out any fractures. He did have fractures of the medial and posterior orbital carreon and also possible fracture of the right maxillary sinus medial wall. ENT was called and they recommended outpatient follow-up. Patient did have an elevated blood alcohol level and also had mild elevation in his troponin to 0.05. As such he was observed in the hospital overnight. Repeat troponin checks have been adynamic at 0.04. Patient has not had any chest pain. EKG was has been normal. He had an echocardiogram done today which showed normal ejection fraction of 60%. No further cardiac workup needed at this time. Recommend outpatient follow-up with cardiology and stress test if indicated. He is presently doing much better and is stable for discharge. We will arrange for outpatient follow-up with ENT. Patient has been counseled about alcohol cessation and has been provided with resources for alcohol rehabilitation. Discharge discussed with: patient, nurse - Time Spent with Patient Total time spent providing and/or coordinating discharge services: Time spent: Less than 30 minutes (25 min) - Discharge Medications Prescriptions: Continued raNITIdine HCl [Zantac] 150 mg PO BID PRN PRN Reason: Heartburn Quetiapine Fumarate [Seroquel] 400 mg PO HS Oxybutynin Chloride [Ditropan Xl] 15 mg PO DAILY Lisinopril [Zestril] 5 mg PO DAILY Levothyroxine [Synthroid] 25 mcg PO DAILY Atorvastatin Calcium [Lipitor] 10 mg PO HS Albuterol Sulfate [Proventil Hfa] 2 puff IH QID PRN PRN Reason: Shortness Of Breath Aspirin [Lo-Dose Aspirin EC] 81 mg PO DAILY ALPRAZolam [Xanax 0.5 MG Tablet] 0.5 mg PO TID PRN PRN Reason: Anxiety Metoprolol Succinate 100 mg PO DAILY Thiamine (B-1) [Vitamin B-1] 100 mg PO DAILY Multivitamin [One Daily Multivitamin] 1 tab PO DAILY Metformin HCl [Metformin ER Gastric] 500 mg PO DAILY Terbinafine HCl [Lamisil] 250 mg PO DAILY GuaiFENesin ER [Mucinex] 600 mg PO BID #60 tbbp.12hr Home Medications: ALPRAZolam [Xanax 0.5 MG Tablet] 0.5 mg PO TID PRN 01/09/17 [History] Albuterol Sulfate [Proventil Hfa] 2 puff IH QID PRN 01/09/17 [History] Aspirin [Lo-Dose Aspirin EC] 81 mg PO DAILY 01/09/17 [History] Atorvastatin Calcium [Lipitor] 10 mg PO HS 01/09/17 [History] Levothyroxine [Synthroid] 25 mcg PO DAILY 01/09/17 [History] Lisinopril [Zestril] 5 mg PO DAILY 01/09/17 [History] Metformin HCl [Metformin ER Gastric] 500 mg PO DAILY 01/09/17 [History] Metoprolol Succinate 100 mg PO DAILY 01/09/17 [History] Multivitamin [One Daily Multivitamin] 1 tab PO DAILY 01/09/17 [History] Oxybutynin Chloride [Ditropan Xl] 15 mg PO DAILY 01/09/17 [History] Quetiapine Fumarate [Seroquel] 400 mg PO HS 01/09/17 [History] Terbinafine HCl [Lamisil] 250 mg PO DAILY 01/09/17 [History] Thiamine (B-1) [Vitamin B-1] 100 mg PO DAILY 01/09/17 [History] raNITIdine HCl [Zantac] 150 mg PO BID PRN 01/09/17 [History] GuaiFENesin ER [Mucinex] 600 mg PO BID #60 tbbp.12hr 01/10/17 [Rx] Allergies/Adverse Reactions: Allergy/AdvReac Type Severity Reaction Status Date / Time Penicillins [PCN] Allergy Unknown Anaphylaxis Verified 01/09/17 13:51 Date of admission: 11/15/18 21:53 [facility] care physician: [facility] Consults: 11/15/18 23:15 Consult to Recordak Operator [CONS] Routine Reason for Consult: follow up w/[facility] advance directive, alcohol abuse 11/15/18 23:17 Consult to Recordak Operator [CONS] Routine Reason for Consult: Alcoholism 11/16/18 00:14 Consult to Nurse Navigator [CONS] Routine Comment: Discharging clinician: Donn Deutsch Anticipated date of discharge: 11/16/18 - Constitutional Vitals: Temp Pulse Resp BP Pulse Ox 98.7 F 76 17 174/96 97 11/16/18 11:21 11/16/18 11:21 11/16/18 11:21 11/16/18 11:21 11/16/18 11:21 General appearance: Present: cooperative, A&O X 3, pleasant, no acute distress, answers questions appropriately Exam: General: Patient is alert, mild distress, oriented x 3 ENT: Ecchymosis noted over the orbits bilaterally. Mucous membranes moist Respiratory: Good respiratory effort. Normal breath sounds. No wheezing or crackles. Cardiovascular: Regular rate and rhythm. s1 and s2 normal No clicks, rubs, gallops, or murmurs. No pedal edema Abdomen: Abdomen is soft, nontender. Bowel sounds are present Musculoskeletal: Spontaneously moving all extremities Skin: warm, dry, intact. Neuro: Alert oriented x 3 normal cranial nerves, no focal deficits - Patient Status Disposition: Home, Self-Care Condition: Good Functional capacity at discharge: independent ambulation Overall status at discharge: patient is progressing back to baseline - Discharge Instructions Follow Up With: [facility] [Primary Care Provider[facility] - (in 1 week) Syed Dwyer DO [Partnered Physician] - (Mild trop elevation; f/u for Stress test as outpatient) Tori Corral DO [Non-Partnered Physician] - (within 1 week for maxillary sinus fracture) - Diet and Activity Activity: increase activity as tolerated Diet: low fat, low cholesterol, low salt diet
--- NOTE | 2018-11-16 13:42 | Electrocardiograph Report ---
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
[2018-11-16 14:50] VITALS: BP 163/93
[2018-11-16] MEDS ORDERED: Thiamine (B-1) 100 MG, Folic Acid 1 MG, MVI, adult with vitamin K 10 ML in 0.9 % Sodi... IVPB SCH (18:00)
--- NOTE | 2018-11-17 12:37 | Electrocardiograph Report ---
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
[2018-11-19] MEDS ORDERED: Thiamine (B-1) 100 MG TABLET PO SCH (09:00)
[2018-11-19] MEDS ORDERED: Folic Acid 1 MG TABLET PO SCH (09:00)
== END 2018-11-16 15:30 | disposition home or self-care (01) ==
LOC: EMEROOARM 17:01 → 2ANU 17:01
PROVIDERS: ADMIT Pediatrics; ATTEND Pediatrics